=== PATIENT | male | born 1955 | race Caucasian/White ===

== ENCOUNTER → 2018-10-26 | Day surgery (SDC) | payer BC ==
[~2018-10-26] MED LIST: AMIODARONE HCL200 MG; ASPIRIN81 MG; COREG3.125 MG; FENTANYL CITRATE/PF 100MCG/2 ML INJ ONE; LEVOTHYROXINE50 MCG PO; MIDAZOLAM HCL 2 MG/2 ML VIAL ONE; OR PHACO EYE KIT ONE; PREOP PHACO EYE KIT ONE; RAMIPRIL5 MG PO
--- OUTSIDE RECORDS SUMMARY | 2018-10-26 13:58 | XMS REPORT | Clinical Summary ---
Author Author [employer] [place] [employer] Address Unknown Phone Unavailable Care Team Providers Care Assigner Name Role Phone Red Escamilla MD PCP Unavailable Allergies No Known Allergies Medications End Date Status Medication Sig Dispensed Refills Start Date Active amIODarone (PACERONE) 200 Take 400 mg 0 MG tablet by mouth. 5 Active levothyroxine (SYNTHROID, Take 200 mcg 0 LEVOTHROID) 200 MCG by mouth. tablet Active carvedilol (COREG) 25 MG Take 75 mg by 0 tablet mouth. Active ondansetron (ZOFRAN, Take 1 tablet 20 tablet 0 HYDROCHLORIDE,) 4 MG (4 mg total) 6 tablet by mouth every 8 (eight) hours as needed for nausea or vomiting. Active losartan-hydrochlorothiaz Take 1 tablet 0 jonathon (HYZAAR) 50-12.5 mg by mouth per tablet daily. 02/03/2018 Discontinued warfarin (COUMADIN) 2.5 Take 2.5 mg 0 MG tablet by mouth. 11/29/2017 clindamycin (CLEOCIN HCL) Take 1 40 capsule 0 300 MG capsule capsule (300 8 mg total) by mouth 4 (four) times a day for 10 days. 02/03/2018 Discontinued furosemide (LASIX) 20 mg Take 20 mg by 0 tablet mouth daily. 01/23/2018 Discontinued rosuvastatin (CRESTOR) 10 Take 10 mg by 0 MG tablet mouth daily. 02/06/2018 Discontinued amoxicillin-pot Take 1 tablet 14 tablet 0 clavulanate (AUGMENTIN) by mouth 2 8 875-125 mg per tablet (two) times a day for 7 days. 03/05/2018 traMADol (ULTRAM) 50 mg Take 1 tablet 30 tablet 0 tablet (50 mg total) 8 by mouth every 6 (six) hours as needed for moderate pain for up to 30 days. 03/05/2018 hydrALAZINE (APRESOLINE) Take 1 tablet 60 tablet 0 25 MG tablet (25 mg total) 8 by mouth 2 (two) times a day for 30 days. 02/11/2018 mupirocin (BACTROBAN) 2 % Apply 15 g 0 ointment topically 8 daily for 7 days. 03/06/2018 phytonadione (MEPHYTON) 1 Take 5 mL (5 150 mL 0 mg/mL suspension mg total) by 8 mouth daily for 30 days. 03/05/2018 furosemide (LASIX) 40 mg Take 1 tablet 30 tablet 0 tablet (40 mg total) 8 by mouth daily for 30 days. 02/13/2018 sulfamethoxazole-trimetho Take 1 tablet 14 tablet 0 prim (BACTRIM DS) 800-160 by mouth 2 8 mg per tablet (two) times a day for 7 days. smx-tmp DS (BACTRIM) 800-160 mg tabs (1tab q12 D10) Active Problems Problem Noted Date SILVIA (acute kidney injury) 02/01/2018 SBO (small bowel obstruction) 01/25/2018 A-fib 01/23/2018 Heart disease 01/23/2018 DVT femoral (deep venous thrombosis) with thrombophlebitis, right 01/23/2018 Transaminitis 01/23/2018 Chronic ulcer of great toe of right foot, limited to breakdown of skin 01/23/2018 Coagulopathy 01/22/2018 Ankle impingement syndrome 06/03/2016 Encounters Care Team Description Date Type Specialty Chauncey Langston DO Encounter for post surgical wound check (Primary Dx) 02/06/2018 Emergency Emergency Medicine Mecca Dinh MD LAPAROSCOPY, POSSIBLE SMALL BOWEL RESECTION, converted to OPEN 01/25/2018 Surgery General Surgery Luz Zayas 01/25/2018 Anesthesia General Surgery Event Lacho Almazan MD Mokkala, Sandhya-Rani, MD Teq[place]imuah, Remy, DO Coagulopathy (Primary Dx); Ecchymosis; Acute deep vein thrombosis (DVT) of femoral vein of right lower extremity; Abdominal pain, unspecified abdominal location; Enteritis; DVT femoral (deep venous thrombosis) with thrombophlebitis, right; SBO (small bowel obstruction) 01/21/2018 [facility] General Surgery - Encounter 02/03/2018 Genesis Young PA-C Marcantel, Derek L, MD Nondisplaced fracture of distal phalanx of left great toe, initial encounter for open fracture (Primary Dx) 11/19/2017 Emergency Emergency Medicine after 10/25/2017 Immunizations Name Dates Previously Given Next Due Td 11/19/2017 Social History Date Tobacco Use Types Packs/Day Years Used Never Smoker Smokeless Tobacco: Chew Current User Alcohol Use Drinks/Week oz/Week Comments Yes 8 Cans of 4.8 beer Sex Assigned at Date Recorded Not on file Industry Job Start Date Occupation Not on file Not on file Not on file Travel End Travel History Travel Start No recent travel history available. Last Filed Vital Signs Time Taken Vital Sign Reading 02/06/2018 5:44 PM CDT Blood Pressure 132/69 02/06/2018 5:44 PM CDT Pulse 56 02/06/2018 5:44 PM CDT Temperature 37.2 C (99 F) 02/06/2018 5:44 PM CDT Respiratory Rate 18 02/06/2018 5:44 PM CDT Oxygen Saturation 99% - Inhaled Oxygen - Concentration 02/06/2018 5:48 PM CDT Weight 122 kg (270 lb) 02/06/2018 5:48 PM CDT Height 182.9 cm (6') 02/06/2018 5:48 PM CDT Body Mass Index 36.62 Plan of Treatment Health Maintenance Due Date Last Done Comments COLON CANCER SCREENING 2007 SHINGLES VACCINES (#1) 2007 INFLUENZA VACCINE 03/10/2018 Procedures Comments Procedure Name Priority Date/Time Associated Diagnosis HEPATIC FUNCTION PANEL Routine 02/03/2018 4:44 AM CDT ZZESTIMATED GFR Routine 02/03/2018 4:44 AM CDT HC COMPLETE BLD COUNT Routine 02/03/2018 W/AUTO DIFF 4:44 AM CDT BASIC METABOLIC PANEL Routine 02/03/2018 4:44 AM CDT US ABDOMEN COMPLETE Routine 02/02/2018 3:30 PM CDT HEPATIC FUNCTION PANEL Routine 02/02/2018 4:18 AM CDT PROTHROMBIN TIME WITH INR Routine 02/02/2018 4:18 AM CDT ZZESTIMATED GFR Routine 02/01/2018 5:15 AM CDT PROTHROMBIN TIME WITH INR Routine 02/01/2018 5:15 AM CDT COMPREHENSIVE METABOLIC Routine 02/01/2018 PANEL 5:15 AM CDT PARTIAL THROMBOPLASTIN Routine 02/01/2018 TIME (PTT) 5:15 AM CDT XR ABDOMEN 1 VW STAT 01/31/2018 3:13 PM CDT SMEAR REVIEW Routine 01/31/2018 5:35 AM CDT ZZESTIMATED GFR Routine 01/31/2018 5:35 AM CDT PROTHROMBIN TIME WITH INR Routine 01/31/2018 5:35 AM CDT HC COMPLETE BLD COUNT Routine 01/31/2018 W/AUTO DIFF 5:35 AM CDT COMPREHENSIVE METABOLIC Routine 01/31/2018 PANEL 5:35 AM CDT PARTIAL THROMBOPLASTIN Routine 01/31/2018 TIME (PTT) 5:35 AM CDT HEPATIC FUNCTION PANEL Routine 01/30/2018 5:54 AM CDT PARTIAL THROMBOPLASTIN Routine 01/30/2018 TIME (PTT) 5:54 AM CDT XR ABDOMEN 1 VW STAT 01/29/2018 4:34 PM CDT ZZESTIMATED GFR Routine 01/29/2018 5:39 AM CDT HC COMPLETE BLD COUNT Routine 01/29/2018 W/AUTO DIFF 5:39 AM CDT BASIC METABOLIC PANEL Routine 01/29/2018 5:39 AM CDT PROTHROMBIN TIME WITH INR Routine 01/29/2018 5:39 AM CDT XR ABDOMEN 1 VW Routine 01/28/2018 10:58 AM CDT PROTHROMBIN TIME WITH INR Routine 01/28/2018 5:31 AM CDT MANUAL DIFFERENTIAL Routine 01/27/2018 6:57 AM CDT CBC WITH PLATELET AND Routine 01/27/2018 DIFFERENTIAL 6:57 AM CDT PROTHROMBIN TIME WITH INR Routine 01/27/2018 6:57 AM CDT ZZESTIMATED GFR Routine 01/27/2018 5:07 AM CDT BASIC METABOLIC PANEL Routine 01/27/2018 5:07 AM CDT MANUAL DIFFERENTIAL Routine 01/26/2018 5:32 AM CDT ZZESTIMATED GFR Routine 01/26/2018 5:32 AM CDT MAGNESIUM LEVEL Routine 01/26/2018 5:32 AM CDT BASIC METABOLIC PANEL Routine 01/26/2018 5:32 AM CDT CBC WITH PLATELET AND Routine 01/26/2018 DIFFERENTIAL 5:32 AM CDT PROTHROMBIN TIME WITH INR Routine 01/26/2018 5:32 AM CDT FACTOR II ASSAY Routine 01/25/2018 9:09 PM CDT FACTOR VII ASSAY Routine 01/25/2018 9:09 PM CDT TRANSFUSE FRESH FROZEN Routine 01/25/2018 PLASMA 6:11 PM CDT KY AN ELECTIVE Routine 01/25/2018 ENDOTRACHEAL AIRWAY 5:47 PM CDT Procedure Note - Luz Zayas 01/25/2018 5:47 PM CDT Airway Date/Time: 01/25/2018 4:33 PM Performed by: LUZ ZAYAS Authorized by: VIRA HOPE Location: OR Urgency: Elective Difficult Airway: No Anesthesio logist: VIRA HOPE Resident/C RNA/AA: LUZ ZAYAS Performed by: resident/C RNA/AA Preoxygena michelet with 100% O2: Yes Mask Ventilatio n: Not attempted Final Airway Type: Endotrache al airway Final Endotrache al Airway: ETT Cuffed: Yes Technique Used: Direct laryngosco py Devices/Me thods Used in Placement: Intubatin g stylet Insertion Site: Oral Blade Type: Arriaza Laryngosco pe Blade/Vide olaryngosc ope Blade Size: 2 ETT Size (mm): 7.5 Cuff at minimum occlusion pressure: Yes Measured from: Teeth ETT to Teeth (cm): 22 Placement Verified by: CO2 detection and direct visualizat ion Laryngosco pic view: Grade I - full view of glottis Rapid Sequence Induction (RSI): Yes Modified RSI: No Number of Attempts at Approach: 1 Atraumati c, teeth intact TRANSFUSE FRESH FROZEN Routine 01/25/2018 PLASMA 5:47 PM CDT TRANSFUSE FRESH FROZEN Routine 01/25/2018 PLASMA 5:31 PM CDT TRANSFUSE FRESH FROZEN Routine 01/25/2018 PLASMA 4:58 PM CDT TRANSFUSE FRESH FROZEN Routine 01/25/2018 PLASMA 4:41 PM CDT LAPAROSCOPY, DIAGNOSTIC 01/25/2018 Small Bowel Obstruction 4:30 PM CDT FL SMALL BOWEL Routine 01/25/2018 7:00 AM CDT XR ABDOMEN 1 VW Routine 01/25/2018 6:49 AM CDT ZZESTIMATED GFR Routine 01/25/2018 5:02 AM CDT PROTHROMBIN TIME WITH INR Routine 01/25/2018 5:02 AM CDT COMPREHENSIVE METABOLIC Routine 01/25/2018 PANEL 5:02 AM CDT ZZESTIMATED GFR Routine 01/24/2018 6:53 AM CDT PROTHROMBIN TIME WITH INR Routine 01/24/2018 6:53 AM CDT MAGNESIUM LEVEL Routine 01/24/2018 6:53 AM CDT HC COMPLETE BLD COUNT Routine 01/24/2018 W/AUTO DIFF 6:53 AM CDT COMPREHENSIVE METABOLIC Routine 01/24/2018 PANEL 6:53 AM CDT XR FOOT 3+ VW RIGHT Routine 01/23/2018 10:00 AM CDT HEPATIC FUNCTION PANEL Routine 01/23/2018 5:45 AM CDT ZZESTIMATED GFR Routine 01/23/2018 5:45 AM CDT PROTHROMBIN TIME WITH INR Routine 01/23/2018 5:45 AM CDT MAGNESIUM LEVEL Routine 01/23/2018 5:45 AM CDT BASIC METABOLIC PANEL Routine 01/23/2018 5:45 AM CDT HC COMPLETE BLD COUNT Routine 01/23/2018 W/AUTO DIFF 5:45 AM CDT INHIBIT PT, PTT MIX Routine 01/22/2018 11:30 PM CDT HEMOGLOBIN & HEMATOCRIT Timed 01/22/2018 11:30 PM CDT HEMOGLOBIN & HEMATOCRIT Timed 01/22/2018 5:40 PM CDT INHIBIT PT, PTT MIX Routine 01/22/2018 5:40 PM CDT ECHOCARDIOGRAM 2D Routine 01/22/2018 COMPLETE W MMODE SPECTRAL 1:45 PM CDT COLOR DOPPLER (15918) HEPATITIS ACUTE PANEL Routine 01/22/2018 12:21 PM CDT HEMOGLOBIN & HEMATOCRIT Timed 01/22/2018 12:21 PM CDT LACTIC ACID LEVEL, SEPSIS STAT 01/22/2018 - NOW AND REPEAT 2X EVERY 12:21 PM CDT 3 HOURS PROTHROMBIN TIME WITH INR Routine 01/22/2018 11:50 AM CDT PARTIAL THROMBOPLASTIN Routine 01/22/2018 TIME (PTT) 11:50 AM CDT TRANSFUSE FRESH FROZEN STAT 01/22/2018 PLASMA 9:55 AM CDT TRANSFUSE FRESH FROZEN STAT 01/22/2018 PLASMA 7:37 AM CDT KY CRITICAL CARE, E/M Routine 01/22/2018 30-74 MINUTES 5:43 AM CDT PREPARE FRESH FROZEN Timed 01/22/2018 PLASMA 4:03 AM CDT PREPARE FRESH FROZEN Timed 01/22/2018 PLASMA 4:03 AM CDT PREPARE FRESH FROZEN Timed 01/22/2018 PLASMA 4:03 AM CDT SERUM ELECTROPHORESIS Routine 01/22/2018 4:03 AM CDT HEXAGONAL PHOSPHOLIPID STAT 01/22/2018 4:03 AM CDT DRVVC, DRVVT/DRVVC STAT 01/22/2018 4:03 AM CDT FACTOR VIII ASSAY STAT 01/22/2018 4:03 AM CDT VWF IMMUNOFUNCTION Routine 01/22/2018 4:03 AM CDT CARDIOLIPIN ANTIBODIES Routine 01/22/2018 4:03 AM CDT TROPONIN STAT 01/22/2018 4:03 AM CDT VWF ANTIGEN STAT 01/22/2018 4:03 AM CDT TYPE AND SCREEN Timed 01/22/2018 4:03 AM CDT FACTOR X ASSAY STAT 01/22/2018 4:03 AM CDT FACTOR XI ASSAY STAT 01/22/2018 4:03 AM CDT FACTOR VII ASSAY STAT 01/22/2018 4:03 AM CDT FACTOR V ASSAY STAT 01/22/2018 4:03 AM CDT FACTOR IX ASSAY STAT 01/22/2018 4:03 AM CDT FACTOR II ASSAY STAT 01/22/2018 4:03 AM CDT INHIBIT PT, PTT MIX STAT 01/22/2018 4:03 AM CDT LDH STAT 01/22/2018 4:03 AM CDT HAPTOGLOBIN STAT 01/22/2018 4:03 AM CDT LUPUS ANTICOAGULANT PANEL STAT 01/22/2018 4:03 AM CDT HIV 1, 2 ANTIBODY STAT 01/22/2018 4:03 AM CDT CADY STAT 01/22/2018 4:03 AM CDT BETA-2 GLYCOPROTEIN 1 STAT 01/22/2018 ANTIBODY, IGG AND IGM 4:03 AM CDT D-DIMER STAT 01/22/2018 4:03 AM CDT FIBRINOGEN STAT 01/22/2018 4:03 AM CDT PROTHROMBIN TIME WITH INR Routine 01/22/2018 1:50 AM CDT PARTIAL THROMBOPLASTIN Routine 01/22/2018 TIME (PTT) 1:[address] ABDOMEN PELVIS WO STAT 01/22/2018 CONTRAST 1:24 AM CDT US DUPLEX VENOUS LOWER STAT 01/22/2018 EXTREMITY RIGHT 1:05 AM CDT MISCELLANEOUS REFERRAL Routine 01/22/2018 TEST 12:22 AM CDT ZZESTIMATED GFR STAT 01/22/2018 12:22 AM CDT URINALYSIS SCREEN AND STAT 01/22/2018 MICROSCOPY, WITH REFLEX 12:22 AM CDT TO CULTURE B NATRIURETIC PEPTIDE STAT 01/22/2018 12:22 AM CDT TROPONIN STAT 01/22/2018 12:22 AM CDT LIPASE LEVEL STAT 01/22/2018 12:22 AM CDT HEPATIC FUNCTION PANEL STAT 01/22/2018 12:22 AM CDT LACTIC ACID LEVEL, SEPSIS STAT 01/22/2018 - NOW AND REPEAT 2X EVERY 12:22 AM CDT 3 HOURS MAGNESIUM LEVEL STAT 01/22/2018 12:22 AM CDT HC COMPLETE BLD COUNT STAT 01/22/2018 W/AUTO DIFF 12:22 AM CDT BASIC METABOLIC PANEL STAT 01/22/2018 12:22 AM CDT URINE CULTURE STAT 01/22/2018 12:22 AM CDT XR FOOT 3+ VW RIGHT STAT 11/19/2017 5:20 PM CDT ZZESTIMATED GFR STAT 11/19/2017 4:45 PM CDT COMPREHENSIVE METABOLIC STAT 11/19/2017 PANEL 4:45 PM CDT PARTIAL THROMBOPLASTIN STAT 11/19/2017 TIME (PTT) 4:45 PM CDT PROTHROMBIN TIME WITH INR STAT 11/19/2017 4:45 PM CDT HC COMPLETE BLD COUNT STAT 11/19/2017 W/AUTO DIFF 4:45 PM CDT after 10/25/2017 Results * Estimated GFR (02/03/2018 4:44 AM CDT) Only the most recent of 11 results within the time period is included. GFR Non Af Amer 52 (A) mL/min/1.[address] [facility] DEPARTMENT OF PATHOLOGY AND GENOMIC MEDICINE GFR Af Amer 62 mL/min/1.[address] [facility] DEPARTMENT OF Comment: PATHOLOGY AND Chronic kidney disease: <60 GENOMIC MEDICINE mL/min/1.73m2 Kidney failure: <15 mL/min/1.73m2 The estimated GFR is calculated from the IDMS-traceable Modification of Diet in Renal Disease Equation. The accuracy of the calculation is poor when the creatinine is normal. Calculated values >90 mL/min/1.73m2 are not reported. This equation has not been validated in children (<18 years), women, the elderly (>70 years), or ethnic groups other than Caucasians and Americans. Specimen Plasma specimen Performing Organization Address City/State/Zipcode Phone Number [facility] [place] [address] [address] [place] [address] PATHOLOGY AND [facility] * CBC with platelet and differential (02/03/2018 4:44 AM CDT) Only the most recent of 9 results within the time period is included. WBC 7.98 4.50 - 11.00 k/uL [facility] DEPARTMENT OF PATHOLOGY AND GENOMIC MEDICINE RBC 3.51 (L) 4.40 - 6.00 m/uL [facility] PATHOLOGY AND GENOMIC MEDICINE HGB 10.3 (L) 14.0 - 18.0 g/dL [facility] PATHOLOGY AND GENOMIC MEDICINE HCT 31.6 (L) 41.0 - 51.0 % [facility] DEPARTMENT PATHOLOGY AND GENOMIC MEDICINE MCV 90.0 82.0 - 100.[address] [facility] DEPARTMENT OF PATHOLOGY AND GENOMIC MEDICINE MCH 29.3 27.0 - 34.[address] [facility] DEPARTMENT OF PATHOLOGY AND GENOMIC MEDICINE MCHC 32.6 31.0 - 37.0 g/dL [facility] DEPARTMENT OF PATHOLOGY AND GENOMIC MEDICINE RDW - SD 55.0 37.0 - 55.[address] [facility] DEPARTMENT PATHOLOGY AND GENOMIC MEDICINE MPV 9.6 8.8 - 13.[address] [facility] DEPARTMENT OF PATHOLOGY AND GENOMIC MEDICINE Platelet count 280 150 - 400 k/uL [facility] DEPARTMENT PATHOLOGY AND GENOMIC MEDICINE Nucleated RBC 0.00 /[address] [facility] DEPARTMENT OF PATHOLOGY AND GENOMIC MEDICINE Neutrophils 73.0 (H) 39.0 - 69.0 % [facility] DEPARTMENT OF PATHOLOGY AND GENOMIC MEDICINE Lymphocytes 13.7 (L) 25.0 - 45.0 % [facility] DEPARTMENT OF PATHOLOGY AND GENOMIC MEDICINE Monocytes 8.8 0.0 - 10.0 % [facility] DEPARTMENT OF PATHOLOGY AND GENOMIC MEDICINE Eosinophils 3.1 0.0 - 5.0 % [facility] DEPARTMENT OF PATHOLOGY AND GENOMIC MEDICINE Basophils 0.5 0.0 - 1.0 % [facility] DEPARTMENT OF PATHOLOGY AND GENOMIC MEDICINE Specimen Blood Performing Organization Address [facility] Phone Number [facility] [id number] [place] [address] [place] [address] PATHOLOGY [facility] * Hepatic function panel (02/03/2018 4:44 AM CDT) Only the most recent of 5 results within the time period is included. Albumin 2.8 (L) 3.5 - 5.0 g/dL [facility] DEPARTMENT OF PATHOLOGY AND GENOMIC MEDICINE Total bilirubin 1.4 (H) 0.0 - 1.2 mg/dL [facility] DEPARTMENT OF PATHOLOGY AND GENOMIC MEDICINE Bilirubin direct 0.5 (H) 0.0 - 0.3 mg/dL [facility] DEPARTMENT OF PATHOLOGY AND GENOMIC MEDICINE Alkaline phosphatase 58 40 - 129 U/L [facility] DEPARTMENT OF PATHOLOGY AND GENOMIC MEDICINE Protein 5.6 (L) 6.3 - 8.3 g/dL [facility] DEPARTMENT OF Comment: PATHOLOGY AND GENOMIC MEDICINE 4.6-7.0 g/dL 1 week 4.4-7.6 g/dL 7 months-1year 5.1-7.3 g/dL 1-2 years5.6-7 .5 g/dL >3 years6.0-8 .0 g/dL 18-150 6.3-8.3 g/dL ALT 157 (H) 5 - 50 U/L [facility] DEPARTMENT OF PATHOLOGY AND GENOMIC MEDICINE AST 92 (H) 10 - 50 U/L [facility] DEPARTMENT OF PATHOLOGY AND GENOMIC MEDICINE Specimen Plasma specimen Performing Organization Address [facility] Phone Number [facility] [id number] [place] [address] [place] [id number] PATHOLOGY [facility] * Basic metabolic panel (02/03/2018 4:44 AM CDT) Only the most recent of 6 results within the time period is included. Sodium 137 135 - 148 mEq/L [facility] DEPARTMENT OF PATHOLOGY AND GENOMIC MEDICINE Potassium 3.7 3.5 - 5.0 mEq/L [facility] DEPARTMENT OF PATHOLOGY AND GENOMIC MEDICINE Chloride 98 98 - 112 mEq/L [facility] OF PATHOLOGY AND GENOMIC MEDICINE CO2 31 24 - 31 mEq/L [facility] DEPARTMENT OF PATHOLOGY AND GENOMIC MEDICINE Anion gap 8@ANIO 7 - 15 mEq/L [facility] OF PATHOLOGY AND GENOMIC MEDICINE BUN 17 8 - 23 mg/dL [facility] DEPARTMENT OF PATHOLOGY AND GENOMIC MEDICINE Creatinine 1.4 (H) 0.7 - 1.2 mg/dL [facility] DEPARTMENT OF PATHOLOGY AND GENOMIC MEDICINE Glucose 120 (H) 65 - 99 mg/dL [facility] OF PATHOLOGY AND GENOMIC MEDICINE Calcium 7.7 (L) 8.8 - 10.2 mg/dL [facility] OF PATHOLOGY AND GENOMIC MEDICINE Specimen Plasma specimen Performing Organization Address City/State/Zipcode Phone Number [place] [phone] [place] [address] PATHOLOGY AND GENOMIC MEDICINE * US Abdomen Complete (02/02/2018 3:30 PM CDT) Narrative Performed At EXAM: US ABDOMEN COMPLETE RADIANT CLINICAL DATA:elevated LFTs COMPARISON: NONE. FINDINGS: LIVER:The liver demonstrates normal echogenicity without focal mass or intrahepatic biliary ductal dilatation. MPV:Doppler evaluation of the portal vein demonstrates normal hepatopetal flow. GALLBLADDER:There is nonshadowing sludge in the gallbladder. No gallstones are seen. There is no pericholecystic edema. Gallbladder wall thickness is 4 mm. CBD: 6 mm diameter, within normal limits. PANCREAS:Not seen SPLEEN:The spleen is homogeneous and not enlarged.. RIGHT KIDNEY:11 cm length.The right kidney is normal in size and echogenicity. There is no evidence of mass, calculi, or hydronephrosis. LEFT KIDNEY:12.2 cm length.The left kidney is normal in size and echogenicity. There is no evidence of mass, calculi, or hydronephrosis. AORTA:The visualized upper abdominal aorta demonstrates no evidence of ectasia or aneurysm. IVC:The visualized portions of the inferior vena cava are unremarkable. IMPRESSION: 1. Gallbladder sludge without visible shadowing stones. Borderline to mild gallbladder wall thickening without pericholecystic fluid. Findings are not convincing for cholecystitis. If there is clinical concern, recommend nuclear hepatic biliary scan. 2.Otherwise unremarkable study. [id number] Procedure Note Interface, Radiology Results Incoming - 02/02/2018 4:03 PM CDT EXAM: US ABDOMEN COMPLETE CLINICAL DATA: elevated LFTs COMPARISON: NONE. FINDINGS: LIVER: The liver demonstrates normal echogenicity without focal mass or intrahepatic biliary ductal dilatation. MPV: Doppler evaluation of the portal vein demonstrates normal hepatopetal flow. GALLBLADDER: There is nonshadowing sludge in the gallbladder. No gallstones are seen. There is no pericholecystic edema. Gallbladder wall thickness is 4 mm. CBD: 6 mm diameter, within normal limits. PANCREAS: Not seen SPLEEN: The spleen is homogeneous and not enlarged.. RIGHT KIDNEY: 11 cm length. The right kidney is normal in size and echogenicity. There is no evidence of mass, calculi, or hydronephrosis. LEFT KIDNEY: 12.2 cm length. The left kidney is normal in size and echogenicity. There is no evidence of mass, calculi, or hydronephrosis. AORTA: The visualized upper abdominal aorta demonstrates no evidence of ectasia or aneurysm. IVC: The visualized portions of the inferior vena cava are unremarkable. IMPRESSION: 1. Gallbladder sludge without visible shadowing stones. Borderline to mild gallbladder wall thickening without pericholecystic fluid. Findings are not convincing for cholecystitis. If there is clinical concern, recommend nuclear hepatic biliary scan. 2. Otherwise unremarkable study. [id number] Performing Organization Address City/[facility]/Zipcode Phone Number [facility] [address] [place] [address] * Prothrombin time with INR (02/02/2018 4:18 AM CDT) Only the most recent of 13 results within the time period is included. Prothrombin time 19.6 (H) 12.0 - 15.[address] [facility] DEPARTMENT OF PATHOLOGY AND GENOMIC MEDICINE INR 1.[address] [facility] DEPARTMENT OF Comment: PATHOLOGY AND The International Normalized GENOMIC MEDICINE Ratio (INR) is a therapeutic monitoring tool for patients who are stable on oral anticoagulant therapy. An INR of 2.0-3.0 is suggested for deep vein thrombosis/pulmonary embolism. Specimen Blood Performing Organization Address City/State/Zipcode Phone Number [facility] OF [address] [place] [address] [place] [address] PATHOLOGY AND GENOMIC MEDICINE * Partial thromboplastin time, activated (02/01/2018 5:15 AM CDT) Only the most recent of 6 results within the time period is included. PTT 31.4 23.0 - 36.[address] [facility] DEPARTMENT OF Comment: PATHOLOGY AND PTT therapeutic range for GENOMIC MEDICINE unfractionated heparin is 61.0-112.0 seconds which corresponds to Anti-Xa 0.3-0.7 U/ml. Specimen Blood Performing Organization Address City/State/Zipcode Phone Number [facility] [place] [address] [address] [place] [address] PATHOLOGY AND GENOMIC MEDICINE * Comprehensive metabolic panel (02/01/2018 5:15 AM CDT) Only the most recent of 5 results within the time period is included. Sodium 126 (L) 135 - 148 mEq/L [facility] DEPARTMENT OF PATHOLOGY AND GENOMIC MEDICINE Potassium 4.0 3.5 - 5.0 mEq/L [facility] DEPARTMENT OF PATHOLOGY AND GENOMIC MEDICINE Chloride 93 (L) 98 - 112 mEq/L [facility] DEPARTMENT OF PATHOLOGY AND GENOMIC MEDICINE CO2 24 24 - 31 mEq/L [facility] DEPARTMENT OF PATHOLOGY AND GENOMIC MEDICINE Anion gap 9@ANIO 7 - 15 mEq/L [facility] DEPARTMENT OF PATHOLOGY AND GENOMIC MEDICINE BUN 21 8 - 23 mg/dL [facility] DEPARTMENT OF PATHOLOGY AND GENOMIC MEDICINE Creatinine 1.6 (H) 0.7 - 1.2 mg/dL [facility] DEPARTMENT OF PATHOLOGY AND GENOMIC MEDICINE Glucose 107 (H) 65 - 99 mg/dL [facility] DEPARTMENT OF PATHOLOGY AND GENOMIC MEDICINE Calcium 7.7 (L) 8.8 - 10.2 mg/dL [facility] DEPARTMENT OF PATHOLOGY AND GENOMIC MEDICINE Protein 5.4 (L) 6.3 - 8.3 g/dL [facility] DEPARTMENT OF Comment: PATHOLOGY AND GENOMIC MEDICINE 4.6-7.0 g/dL 1 week 4.4-7.6 g/dL 7 months-1year 5.1-7.3 g/dL 1-2 years5.6-7 .5 g/dL >3 years6.0-8 .0 g/dL 18-150 6.3-8.3 g/dL Albumin 2.8 (L) 3.5 - 5.0 g/dL [facility] DEPARTMENT OF PATHOLOGY AND GENOMIC MEDICINE A/G ratio 1.1 0.7 - 3.[address] [facility] DEPARTMENT OF PATHOLOGY AND GENOMIC MEDICINE Alkaline phosphatase 45 40 - 129 U/L [facility] DEPARTMENT OF PATHOLOGY AND GENOMIC MEDICINE AST 117 (H) 10 - 50 U/L [facility] DEPARTMENT OF PATHOLOGY AND GENOMIC MEDICINE ALT 179 (H) 5 - 50 U/L [facility] DEPARTMENT OF PATHOLOGY AND GENOMIC MEDICINE Total bilirubin 2.1 (H) 0.0 - 1.2 mg/dL [facility] DEPARTMENT OF PATHOLOGY AND GENOMIC MEDICINE Specimen Plasma specimen Performing Organization Address City/[facility] Cent[facility]ode Phone Number [facility] DEPARTMENT [address] [place] [address] PATHOLOGY AND GENOMIC MEDICINE * XR Abdomen 1 Vw (01/31/2018 3:13 PM CDT) Only the most recent of 4 results within the time period is included. Narrative Performed At EXAMINATION:XR ABDOMEN 1 VW [facility] CLINICAL HISTORY:constipation, Pain COMPARISON:01/29/2018 FINDINGS: XR ABDOMEN 1 VW images are submitted. There is extensive colonic fecal retention present. Bowel gas is seen throughout the small bowel and colon. There is some minimal small bowel dilatation but no evidence of any focal obstruction. Minimal degenerative changes seen within the thoracic spine. And lumbar spine. IMPRESSION: 1. There is moderate colonic fecal retention present. 2. There is no bowel obstruction present. [id number] Procedure Note Hm Interface, Radiology Results Incoming - 01/31/2018 3:19 PM CDT EXAMINATION: XR ABDOMEN 1 VW CLINICAL HISTORY: constipation, Pain COMPARISON: 01/29/2018 FINDINGS: XR ABDOMEN 1 VW images are submitted. There is extensive colonic fecal retention present. Bowel gas is seen throughout the small bowel and colon. There is some minimal small bowel dilatation but no evidence of any focal obstruction. Minimal degenerative changes seen within the thoracic spine. And lumbar spine. IMPRESSION: 1. There is moderate colonic fecal retention present. 2. There is no bowel obstruction present. [id number] Performing Organization Address City/[facility]/Zipcode Phone Number [facility] [address] [place] [address] * Smear review (01/31/2018 5:35 AM CDT) Platelet slide review Sara adequate [facility] DEPARTMENT OF PATHOLOGY AND GENOMIC MEDICINE Anisocytosis Moderate [facility] DEPARTMENT OF PATHOLOGY AND GENOMIC MEDICINE Polychromasia Moderate [facility] DEPARTMENT OF PATHOLOGY AND GENOMIC MEDICINE Performing Organization Address City/[facility]/Zipcode Phone Number [facility] DEPARTMENT OF [address] [place] [address] [place] [address] PATHOLOGY AND GENOMIC MEDICINE * Manual differential (01/27/2018 6:57 AM CDT) Only the most recent of 2 results within the time period is included. Manual differential PERFORMED [facility] DEPARTMENT OF PATHOLOGY AND GENOMIC MEDICINE Neutrophils 79.0 (H) 39.0 - 69.0 % [facility] DEPARTMENT OF PATHOLOGY AND GENOMIC MEDICINE Lymphocytes 15.0 (L) 25.0 - 45.0 % [facility] DEPARTMENT OF PATHOLOGY AND GENOMIC MEDICINE Monocytes 5.0 0.0 - 10.0 % [facility] DEPARTMENT OF PATHOLOGY AND GENOMIC MEDICINE Eosinophils 1.0 0.0 - 5.0 % [facility] DEPARTMENT OF PATHOLOGY AND GENOMIC MEDICINE Basophils 0.0 0.0 - 1.0 % [facility] DEPARTMENT OF PATHOLOGY AND GENOMIC MEDICINE Metamyelocytes 0 % [facility] DEPARTMENT OF PATHOLOGY AND GENOMIC MEDICINE Promyelocytes 0 % [facility] DEPARTMENT OF PATHOLOGY AND GENOMIC MEDICINE Platelet slide review Sara adequate [facility] DEPARTMENT OF PATHOLOGY AND GENOMIC MEDICINE Anisocytosis Moderate [facility] DEPARTMENT OF PATHOLOGY AND GENOMIC MEDICINE Polychromasia FEW [facility] DEPARTMENT OF PATHOLOGY AND GENOMIC MEDICINE Ovalocytes Moderate [facility] DEPARTMENT OF PATHOLOGY AND GENOMIC MEDICINE Anisochromia Moderate [facility] DEPARTMENT OF PATHOLOGY AND GENOMIC MEDICINE Performing Organization Address City/[facility] Centercone Phone Number [address] [place] [address] PATHOLOGY AND GENOMIC MEDICINE * Magnesium level (01/26/2018 5:32 AM CDT) Only the most recent of 4 results within the time period is included. Magnesium 2.1 1.6 - 2.4 mg/dL [facility] DEPARTMENT OF PATHOLOGY AND GENOMIC MEDICINE Specimen Plasma specimen Performing Organization Address City/[facility] Centercode Phone Number [address] [place] [address] PATHOLOGY AND GENOMIC MEDICINE * Factor VII assay (01/25/2018 9:09 PM CDT) Only the most recent of 2 results within the time period is included. Factor VII activity 37 (L) 70 - 150 % [facility] DEPARTMENT OF PATHOLOGY AND GENOMIC MEDICINE Specimen Blood Performing Organization Address City/[facility]/Zipcode Phone Number [facility] DEPARTMENT OF [address] [place] [address] PATHOLOGY AND GENOMIC MEDICINE * Factor II assay (01/25/2018 9:09 PM CDT) Only the most recent of 2 results within the time period is included. Factor II activity 37 (L) 70 - 120 % [facility] DEPARTMENT OF PATHOLOGY AND GENOMIC MEDICINE Specimen Blood Performing Organization Address City/[facility]/Zipcode Phone Number [facility] DEPARTMENT OF [address] [place] [address] PATHOLOGY AND GENOMIC MEDICINE * FL Small Bowel Series (01/25/2018 7:00 AM CDT) Narrative Performed At PROCEDURE:FL SMALL BOWEL [facility] CLINICAL HISTORY:OBSTRUCTION - INTESTINAL,small bowel obstruction COMPARISON:None. TECHNIQUE: A billing checker film was performed. A small bowel series was subsequently done using Gastrografin sequential overhead 15 minute-one hour abdominal films were obtained. FINDINGS: The billing checker film demonstrates dilated loops of small bowel without colonic distention consistent with changes of mechanical small bowel obstruction. An NG tube is seen with the tip projected below the GE junction.. Imaging was taken to 9 hours postingestion with contrast not advancing past the proximal jejunal level. Note should made that Gastrografin does not coat the mucosa adequately precluding evaluation of fine mucosal detail. No gross filling defects are identified. IMPRESSION: Abnormal study. High-grade mechanical small bowel obstruction likely at the proximal to mid jejunal level. Contrast never reaches the colon up to 9 hours of imaging. [id number] . Procedure Note Interface, Radiology Results Incoming - 01/25/2018 10:22 AM CDT PROCEDURE: FL SMALL BOWEL CLINICAL HISTORY: OBSTRUCTION - INTESTINAL, small bowel obstruction COMPARISON: None. TECHNIQUE: A billing checker film was performed. A small bowel series was subsequently done using Gastrografin sequential overhead 15 minute-one hour abdominal films were obtained. FINDINGS: The billing checker film demonstrates dilated loops of small bowel without colonic distention consistent with changes of mechanical small bowel obstruction. An NG tube is seen with the tip projected below the GE junction.. Imaging was taken to 9 hours postingestion with contrast not advancing past the proximal jejunal level. Note should made that Gastrografin does not coat the mucosa adequately precluding evaluation of fine mucosal detail. No gross filling defects are identified. IMPRESSION: Abnormal study. High-grade mechanical small bowel obstruction likely at the proximal to mid jejunal level. Contrast never reaches the colon up to 9 hours of imaging. [id number] . Performing Organization Address City/State/Zipcode Phone Number [facility] [address] [place] [address] * XR Foot 3+ Vw Right (01/23/2018 10:00 AM CDT) Only the most recent of 2 results within the time period is included. Narrative Performed At EXAMINATION:XR FOOT 3VW RIGHT [facility] CLINICAL HISTORY:hematoma r o fx COMPARISON: 11/19/2017 TECHNIQUE: AP, lateral, and oblique right foot radiographs are reviewed. IMPRESSION: 1.Oblique fracture of the great toe distal phalanx is redemonstrated and has not shown significant interval healing. 2.There is no other fracture. 3.There is no dislocation. 4.Some soft tissue swelling in the dorsal foot at the level of the metatarsals is apparent. There are vascular calcifications. [id number] Procedure Note Hm Interface, Radiology Results Incoming - 01/23/2018 12:10 PM CDT EXAMINATION: XR FOOT 3 VW RIGHT CLINICAL HISTORY: hematoma r o fx COMPARISON: 11/19/2017 TECHNIQUE: AP, lateral, and oblique right foot radiographs are reviewed. IMPRESSION: 1. Oblique fracture of the great toe distal phalanx is redemonstrated and has not shown significant interval healing. 2. There is no other fracture. 3. There is no dislocation. 4. Some soft tissue swelling in the dorsal foot at the level of the metatarsals is apparent. There are vascular calcifications. [id number] Performing Organization Address City/State/Zipcode Phone Number [facility] [address] [place] [address] * Inhibit PT, PTT mix (01/22/2018 11:30 PM CDT) Only the most recent of 3 results within the time period is included. PT patient 0 minutes 21.6 (H) 12.0 - 15.0 sec [facility] DEPARTMENT OF PATHOLOGY AND GENOMIC MEDICINE PT 1:1 mix 0 minutes 14.4 12.0 - 15.0 sec [facility] DEPARTMENT OF PATHOLOGY AND GENOMIC MEDICINE PTT patient 0 minutes 53.9 (H) 23.0 - 36.0 sec [facility] DEPARTMENT OF Comment: PATHOLOGY AND Tests performed for mixing GENOMIC MEDICINE study interpretation. PT 22.0 sec (Nrml range 12.0-15.0 sec) PTT 51.3 sec (Nrml range 23.0-36.0 sec) FIB 536 mg/dL (Nrml range 200-450 mg/dL) Throm 15.4 sec (Nrml range 15.0-19.0 sec) PTT 1:1 mix 0 minutes 33.7 23.0 - 36.0 sec [facility] DEPARTMENT OF PATHOLOGY AND GENOMIC MEDICINE PTT patient 60 minutes 57.2 (H) 23.0 - 36.0 sec [facility] DEPARTMENT OF PATHOLOGY AND GENOMIC MEDICINE PTT 1:1 mix 60 minutes 35.8 23.0 - 36.0 sec [facility] DEPARTMENT OF PATHOLOGY AND GENOMIC MEDICINE PT, PTT mix SeeBelow sec [facility] DEPARTMENT OF interpretation Comment: PATHOLOGY AND Prolonged PT and PTT with GENOMIC MEDICINE complete correction, consistent with vitamin K dependent factor deficiency.Reviewed by Awa Holland M.D. Specimen Blood Performing Organization Address City/State/Zipcode Phone Number [facility] DEPARTMENT OF [address] [place] [address] PATHOLOGY AND GENOMIC MEDICINE * Hemoglobin & hematocrit (01/22/2018 11:30 PM CDT) Only the most recent of 3 results within the time period is included. HGB 10.9 (L) 14.0 - 18.0 g/dL [facility] DEPARTMENT OF PATHOLOGY AND GENOMIC MEDICINE HCT 33.4 (L) 41.0 - 51.0 % [facility] DEPARTMENT OF PATHOLOGY AND GENOMIC MEDICINE Specimen Blood Performing Organization Address City/State/Zipcode Phone Number [facility] [address] [place] [address] PATHOLOGY AND GENOMIC MEDICINE * Echocardiogram complete w contrast and 3D if needed (01/22/2018 1:45 PM CDT) AoV Area, Vmax 2.40 cm2 [facility] AoV Area, VTI 2.81 cm2 [facility] AoV Mean PG 14.27 mmHg [facility] AoV Peak PG 33.83 mmHg [facility] AoV Vmax 2.91 m/s [facility] AoV VTI 0.49 m [facility] IVS,d 1.20 0.6 - 1.2 cm [facility] LV,d 4.49 cm [facility] LV EF,A2C 62.06 % [facility] LV EF,A4C 57.86 % [facility] LV EF,BP 56.85 % [facility] [place],d A2C 8.85 cm [facility] [place],d A4C 9.67 cm [facility] [place],s A2C 5.87 cm [facility] [place],s A4C 7.53 cm [facility] LV,s 3.00 cm [facility] LV SV,A2C 77.63 % [facility] LV SV,A4C 117.23 % [facility] LV Vol,d A2C 125.09 mL [facility] LV Vol,d A4C 202.60 ml [facility] LV Vol,d BP 164.57 ml [facility] LV Vol,s A2C 47.46 mL [facility] LV Vol,s A4C 85.37 ml [facility] LV Vol,s BP 71.02 nl [facility] LVOT Diam,S 2.20 cm [facility] LVOT Vmax 1.71 m/s [facility] LVOT VTI 0.36 m [facility] LVPWD,d 0.79 cm [facility] TR Vpeak 2.93 mm/s [facility] MV E A ratio 1.87 mmHg [facility] TR pk grad 31.04 mmHg [facility] E wave decelartion time 211.28 msec [facility] MV Peak A Chavez 0.44 m/s [facility] MV valve area p 1/2 3.70 cm2 [facility] method MV Peak E Chavez 0.83 m/s [facility] MV stenosis pressure 1/2 59.39 ms [facility] time AV LVOT peak gradient 11.71 mmHg [facility] LV SYS VOL 35.00 ml [facility] LV CALVIN VOL 92.08 ml [facility] LV SV Teich 2D 57.08 ml [facility] LVOT SI 55.79 ml/m2 [facility] AoV Cusp sep 1.77 [facility] AoV Vmn 1.75 [facility] IVS s 2D 1.52 [facility] LA Ao Ratio Mmode 1.40 [facility] LVOT Vmn 1.20 [facility] Pt Size 182.88 [facility] Pt Wt 127.01 [facility] Ao root annulus 4.32 cm [facility] PV AT 138.41 msec [facility] LVOT mean grad 6.49 mmHg [facility] LVPW s PLAX 1.30 cm [facility] MV Decel slope 3.94 m/s2 [facility] LA Vol MOD A4C 98.92 ml [facility] Velocity Ratio (V1/V2) 0.59 m/s [facility] EF 61.99 % [facility] E/A ratio 1.89 [facility] LVOT area 3.80 cm2 [facility] LA volume 108.0 cm3 [facility] LA Area d A4C 99 cm2 [facility] RVSP (TR) 39.25 mmHg [facility] RA pressure 5.00 mmHg [facility] RVSP 39.25 mmHg [facility] Aortic Root 4.30 cm [facility] [place] End Calvin Grad 8.31 [facility] [place] End Diat Chavez 1.44 [facility] D E excurs 2.10 [facility] E f slope 0.15 [facility] E prime lat 0.15 [facility] E jagdish sept 0.07 [facility] PV acc T slope 4.60 [facility] Narrative Performed At [facility] The left ventricle chamber size is normal. Left Ventricular ejection fraction is 55 - 60%. Left atrium size is upper limits of normal. No pericardial effusion Performing Organization Address City/[facility] Centercone Phone Number [facility] [address] [place] [address] * Lactic acid level, SEPSIS - Now and repeat 2x every 3 hours (01/22/2018 12:21 PM CDT) Only the most recent of 2 results within the time period is included. Lactic acid 1.6 0.5 - 2.2 mmol/L [facility] DEPARTMENT OF PATHOLOGY AND GENOMIC MEDICINE Specimen Plasma specimen Performing Organization Address [facility] Phone Number [address] [place] [id number] PATHOLOGY AND [facility] * Hepatitis acute panel (01/22/2018 12:21 PM CDT) Hepatitis A IgM Nonreactive Non-reactive [facility] DEPARTMENT OF PATHOLOGY AND GENOMIC MEDICINE Hepatitis B core IgM Nonreactive Non-reactive [facility] DEPARTMENT OF PATHOLOGY AND GENOMIC MEDICINE Hepatitis B surface Ag Nonreactive Non-reactive [facility] DEPARTMENT OF PATHOLOGY AND GENOMIC MEDICINE Hepatitis C Ab Nonreactive Non-reactive [facility] DEPARTMENT PATHOLOGY AND GENOMIC MEDICINE Specimen Serum Performing Organization Address [facility] Phone Number [address] [place] [phone] PATHOLOGY AND [facility] * Transfuse fresh frozen plasma (01/22/2018 9:55 AM CDT) Only the most recent of 2 results within the time period is included. * CRITICAL CARE (01/22/2018 5:43 AM CDT) Narrative Performed At Lacho Almazan MD 01/22/20185:44 AM Critical Care Performed by: LACHO ALMAZAN Authorized by: LACHO ALMAZAN Critical care provider statement: Critical care time (minutes):33 Critical care start time:01/22/2018 1:00 AM Critical care end time:01/22/2018 5:43 AM Critical care time was exclusive of:Separately billable procedures and treating other patients and teaching time Critical care was necessary to treat or prevent imminent or life-threatening deterioration of the following conditions:Circulatory failure Critical care was time spent personally by me on the following activities:Blood draw for specimens, development of treatment plan with patient or surrogate, discussions with consultants, discussions with primary provider, evaluation of patient's response to treatment, examination of patient, obtaining history from patient or surrogate, ordering and performing treatments and interventions, ordering and review of laboratory studies, ordering and review of radiographic studies, pulse oximetry, re-evaluation of patient's condition and review of old charts [place] 'yes' if you are taking over critical care for this patient from another provider.: no * [facility] immunofunction (01/22/2018 4:03 AM CDT) VWF immunofunction 295 (H) 50 - 180 % [facility] DEPARTMENT OF PATHOLOGY AND GENOMIC MEDICINE Specimen Blood Performing Organization Address City/[facility]/[place] [address] PATHOLOGY AND GENOMIC MEDICINE * Hexagonal phospholipid (01/22/2018 4:03 AM CDT) Hexagonal phospholipid 64.9 sec [facility] DEPARTMENT OF tube #1 PATHOLOGY AND GENOMIC MEDICINE Hexagonal phospholipid 53.3 sec [facility] DEPARTMENT OF tube #2 PATHOLOGY AND GENOMIC MEDICINE Tube 1 - 2 11.6 (H) 0.0 - 8.0 sec [facility] DEPARTMENT OF PATHOLOGY AND GENOMIC MEDICINE LA interpretation Positive [facility] DEPARTMENT OF PATHOLOGY AND GENOMIC MEDICINE Specimen Blood Performing Organization Address City/[facility]/Zipcode Phone Number [address] [address] PATHOLOGY AND GENOMIC MEDICINE * DRVVC, DRVVT/DRVVC (01/22/2018 4:03 AM CDT) DRVVT 103.9 (H) 29.0 - 46.0 sec [facility] DEPARTMENT OF PATHOLOGY AND GENOMIC MEDICINE DRVVC 143.4 sec [facility] DEPARTMENT OF PATHOLOGY AND GENOMIC MEDICINE DRVVT/DRVVC ratio 0.72 0.00 - 1.22 sec [facility] DEPARTMENT OF PATHOLOGY AND GENOMIC MEDICINE Specimen Blood Performing Organization Address [facility] [place] [address] PATHOLOGY AND [facility] MEDICINE * Factor X assay (01/22/2018 4:03 AM CDT) Factor X activity 6 (L) 70 - 120 % [facility] DEPARTMENT OF PATHOLOGY AND GENOMIC MEDICINE Specimen Blood Performing Organization Address [facility] [place] [address] PATHOLOGY AND [facility] * VWF antigen (01/22/2018 4:03 AM CDT) VWF Ag 269 (H) 48 - 201 % [facility] DEPARTMENT PATHOLOGY AND [facility] MEDICINE Specimen Blood Performing Organization Address [facility] [place] [address] PATHOLOGY AND [facility] * Troponin (01/22/2018 4:03 AM CDT) Only the most recent of 2 results within the time period is included. Troponin <0.300 0.000 - 0.300 ng/mL [facility] DEPARTMENT OF Comment: PATHOLOGY AND 0.30 - 1.49 GENOMIC MEDICINE ng/mlMay indicate increased risk of acute coronary syndrome. >=1.5 ng/ml Consistent with acute myocardial infarction. The diagnostic value of a single normal or non-diagnostic result is questionable.Serial samples at 2-6 hour intervals are required to rule out acute myocardial injury. Specimen Plasma specimen Performing Organization Address [facility] Phone Number [facility] [address] [place] [address] PATHOLOGY AND GENOMIC MEDICINE * Beta-2 glycoprotein 1 antibody, IgG and IgM (01/22/2018 4:03 AM CDT) Beta-2 glycoprotein 1 <9.4 0.0 - 20.0 [facility] DEPARTMENT OF antibody, IgG Comment: PATHOLOGY AND Negative=<20.0 [facility] GENOMIC MEDICINE Positive >20.0 [facility] Beta-2 glycoprotein 1 18.7 0.0 - 20.0 [facility] DEPARTMENT OF antibody, IgM Comment: PATHOLOGY AND Negative=<20.0 [facility] GENOMIC MEDICINE Positive >20.0 [facility] Specimen Blood Performing Organization Address [facility] Centercode Phone Number [address] [place] [address] PATHOLOGY AND GENOMIC MEDICINE * Prepare fresh frozen plasma, 4 Units (01/22/2018 4:03 AM CDT) Only the most recent of 3 results within the time period is included. Product name Thawed Plasma [facility] DEPARTMENT OF PATHOLOGY AND GENOMIC MEDICINE Unit number [id number] [facility] DEPARTMENT OF PATHOLOGY AND GENOMIC MEDICINE Product code [id number] [facility] DEPARTMENT OF PATHOLOGY AND GENOMIC MEDICINE Dispense status Transfused [facility] DEPARTMENT OF PATHOLOGY AND GENOMIC MEDICINE Blood expiration date [facility] DEPARTMENT OF PATHOLOGY AND GENOMIC MEDICINE Blood type code [address] [facility] DEPARTMENT OF PATHOLOGY AND GENOMIC MEDICINE Blood type A POSITIVE [facility] DEPARTMENT OF PATHOLOGY AND GENOMIC MEDICINE Product name Thawed Plasma [facility] DEPARTMENT OF PATHOLOGY AND GENOMIC MEDICINE Unit number [id number] [facility] DEPARTMENT OF PATHOLOGY AND GENOMIC MEDICINE Product code [id number] [facility] DEPARTMENT OF PATHOLOGY AND GENOMIC MEDICINE Dispense status Transfused [facility] DEPARTMENT OF PATHOLOGY AND GENOMIC MEDICINE Blood expiration date [facility] DEPARTMENT OF PATHOLOGY AND GENOMIC MEDICINE Blood type code [address] [facility] DEPARTMENT OF PATHOLOGY AND GENOMIC MEDICINE Blood type A POSITIVE [facility] DEPARTMENT OF PATHOLOGY AND GENOMIC MEDICINE Product name Thawed Plasma [facility] DEPARTMENT OF PATHOLOGY AND GENOMIC MEDICINE Unit number [id number] [facility] DEPARTMENT OF PATHOLOGY AND GENOMIC MEDICINE Product code [id number] [facility] DEPARTMENT OF PATHOLOGY AND GENOMIC MEDICINE Dispense status Transfused [facility] DEPARTMENT OF PATHOLOGY AND GENOMIC MEDICINE Blood expiration date [facility] DEPARTMENT OF PATHOLOGY AND GENOMIC MEDICINE Blood type code [address] [facility] DEPARTMENT OF PATHOLOGY AND GENOMIC MEDICINE Blood type A POSITIVE [facility] DEPARTMENT OF PATHOLOGY AND GENOMIC MEDICINE Specimen Blood Performing Organization Address City/State/Zipcode Phone Number [facility] DEPARTMENT [id number] [place] [address] [place] [address] PATHOLOGY AND GENOMIC MEDICINE * Lupus anticoagulant panel (01/22/2018 4:03 AM CDT) Prothrombin time >90.0 (H) 12.0 - 15.0 sec [facility] DEPARTMENT OF PATHOLOGY AND GENOMIC MEDICINE INR >11.0 (HH) [facility] DEPARTMENT OF Comment: PATHOLOGY AND The International Normalized GENOMIC MEDICINE Ratio (INR) is a therapeutic monitoring tool for patients who are stable on oral anticoagulant therapy. An INR of 2.0-3.0 is suggested for deep vein thrombosis/pulmonary embolism. PTT 180.0 (HH) 23.0 - 36.0 sec [facility] DEPARTMENT OF Comment: PATHOLOGY AND PTT therapeutic range for GENOMIC MEDICINE unfractionated heparin is 61.0-112.0 seconds which corresponds to Anti-Xa 0.3-0.7 U/ml. PT/ INR/ PTT results called to and read back by Trever Soria/[facility]/ COAGULATION(name/location) at01/22/2018 12:17 (date/time) by _DS1. PTT lupus anticoagulant 179.4 (H) 27.0 - 38.0 sec [facility] DEPARTMENT OF Comment: PATHOLOGY AND Lupus anticoagulant (LA) panel [facility] consists of PT, PTT, PTT-LA, and DRVVT. If the PTT-LA is above the normal range, the hexagonal phospholipid will be performed. If the DRVVT is above the normal range, the DRVVC confirmatory test will be performed. A normal result for both the DRVVT and the PTT-LA means the patient is negative for lupus anticoagulant. The patient is considered positive for lupus anticoagulant if either the Ratio SCR/CONF or the hexagonal phospholipid is high (positive) on two occassions at least six weeks apart. Clinical confirmation is also required for diagnosis. DRVVT 103.9 (H) 29.0 - 46.0 sec [facility] DEPARTMENT OF PATHOLOGY AND GENOMIC MEDICINE Specimen Blood Performing Organization Address City/State/Zipcode Phone Number [facility] DEPARTMENT OF [address] [place] [address] PATHOLOGY AND GENOMIC MEDICINE * HIV 1, 2 antibody (01/22/2018 4:03 AM CDT) HIV 1, 2 antibody Non-Reactive Non-reactive [facility] DEPARTMENT OF Comment: PATHOLOGY AND Starting from November 06 2015, GENOMIC MEDICINE 4th generation HIV screening and confirmation assays are in use at [facility], consistent with the CDC-recommended algorithm. The screening test detects antibodies to HIV-1, HIV-2 and the p24 antigen. Positive screening results will be automatically reflexed to a HIV-1/HIV-2 differentiation assay. Indeterminant HIV-1 results will be further automatically reflexed to a nucleic acid test for detection of acute infection. Western blot will no longer be performed as a confirmation test. For a quick reference guide on the testing algorithm, please refer to: http://stacks.cdc.gov/view/cdc /63899. Specimen Blood Performing Organization Address City/[facility]/Zipcode Phone Number [facility] DEPARTMENT OF [address] [place] [address] PATHOLOGY AND GENOMIC MEDICINE * Cardiolipin antibodies (01/22/2018 4:03 AM CDT) Cardiolipin IgG 2 0 - 14 GPL [facility] DEPARTMENT OF Comment: PATHOLOGY AND Negative=<15 GENOMIC MEDICINE GPL Indeterminate=15-20 GPL Positive=>20 GPL Cardiolipin IgM 6 0 - 12 MPL [facility] DEPARTMENT OF Comment: PATHOLOGY AND Negative=<13 GENOMIC MEDICINE MPL Indeterminate=13-20 MPL Positive=>20 MPL Specimen Blood Performing Organization Address [facility]/Zipcode Phone Number [facility] DEPARTMENT [address] [place] [address] PATHOLOGY AND GENOMIC MEDICINE * Fibrinogen (01/22/2018 4:03 AM CDT) Fibrinogen 463 (H) 200 - 450 mg/dL [facility] DEPARTMENT OF PATHOLOGY AND GENOMIC MEDICINE Specimen Blood Performing Organization Address [facility] Cent[facility]ode Phone Number [facility] [place] [id number] [place] [address] [place] [address] PATHOLOGY AND GENOMIC MEDICINE * D-dimer (01/22/2018 4:03 AM CDT) D-dimer 0.92 (H) 0.00 - 0.40 ug/mL FEU [facility] DEPARTMENT OF Comment: PATHOLOGY AND Units are ug/ml Fibrinogen [facility] Equivalent Unit. When combined with low clinical probability, D-dimer results of less than 0.5 ug/ml FEU have a good negativepredictive value in excluding PE or DVT. For D-dimer results greater than 0.5ug/ml FEU further testing is indicated if PE or DVT is suspectedclinically. Elevated D-dimer results have been reported in DVT, PE, and DIC cases and may indicate the presence of a clot. D-dimer results may be elevated due to old age, , inflammatory diseases, trauma, post-operative states, sepsis, and malignancies. Specimen Blood Performing Organization Address [facility]/Zipcode Phone Number [facility] [place] [id number] [place] [address] [place] [address] PATHOLOGY AND GENOMIC MEDICINE * Factor XI assay (01/22/2018 4:03 AM CDT) Factor XI activity 121 60 - 145 % [facility] DEPARTMENT OF PATHOLOGY AND GENOMIC MEDICINE Specimen Blood Performing Organization Address City/[facility]/Zipcode Phone Number [facility] [place] [address] PATHOLOGY AND [facility] * Factor IX assay (01/22/2018 4:03 AM CDT) Factor IX activity 2 (L) 70 - 152 % [facility] DEPARTMENT OF PATHOLOGY AND GENOMIC MEDICINE Specimen Blood Performing Organization Address City/[facility]/Zipcode Phone Number [facility] [place] [address] PATHOLOGY AND [facility] * Factor VIII assay (01/22/2018 4:03 AM CDT) Factor VIII activity 381 (H) 60 - 150 % [facility] DEPARTMENT OF PATHOLOGY AND GENOMIC MEDICINE Specimen Blood Performing Organization Address City/[facility] Centercode Phone Number [facility] [place] [address] PATHOLOGY AND GENOMIC MEDICINE * Factor V assay (01/22/2018 4:03 AM CDT) Factor V activity 161 (H) 70 - 145 % [facility] DEPARTMENT OF PATHOLOGY AND GENOMIC MEDICINE Specimen Blood Performing Organization Address City/[facility] Centercode Phone Number [facility] [place] [address] PATHOLOGY AND GENOMIC MEDICINE * Type and screen (01/22/2018 4:03 AM CDT) ABO grouping A [facility] DEPARTMENT OF PATHOLOGY AND GENOMIC MEDICINE Rh type POS [facility] DEPARTMENT OF PATHOLOGY AND GENOMIC MEDICINE Antibody screen NEG [facility] DEPARTMENT OF PATHOLOGY AND GENOMIC MEDICINE Performing Organization Address City/[facility]/Zipcode Phone Number [address] [place] [address] PATHOLOGY AND GENOMIC MEDICINE * CADY (01/22/2018 4:03 AM CDT) CADY screen Negative Negative [facility] DEPARTMENT OF PATHOLOGY AND GENOMIC MEDICINE Specimen Blood Performing Organization Address City/[facility]/Zipcode Phone Number [facility] [place] [address] PATHOLOGY AND GENOMIC MEDICINE * Serum electrophoresis (01/22/2018 4:03 AM CDT) Protein 6.9 6.3 - 8.3 g/dL [facility] DEPARTMENT OF Comment: PATHOLOGY AND GENOMIC MEDICINE 4.6-7.0 g/dL 1 week 4.4-7.6 g/dL 7 months-1year 5.1-7.3 g/dL 1-2 years5.6-7 .5 g/dL >3 years6.0-8 .0 g/dL 18-150 6.3-8.3 g/dL SPE albumin 4.47 4.00 - 5.30 g/dL [facility] DEPARTMENT OF PATHOLOGY AND GENOMIC MEDICINE SPE alpha 1 0.20 0.10 - 0.25 g/dL [facility] DEPARTMENT OF PATHOLOGY AND GENOMIC MEDICINE SPE alpha 2 0.67 0.58 - 0.84 g/dL [facility] DEPARTMENT OF PATHOLOGY AND GENOMIC MEDICINE SPE beta 0.80 0.50 - 1.10 g/dL [facility] DEPARTMENT OF PATHOLOGY AND GENOMIC MEDICINE SPE gamma 0.76 0.60 - 1.30 g/dL [facility] DEPARTMENT OF PATHOLOGY AND GENOMIC MEDICINE SPE extended See CommentComment: A normal [facility] DEPARTMENT OF interpretation serum protein study. PATHOLOGY AND GENOMIC MEDICINE SPE interpretation See CommentComment: Haven Vasquez [facility] DEPARTMENT OF MD Olga; Brea Arias, PhD; Santo SANDOVAL AND MD Frederick, PhD GENOMIC MEDICINE Specimen Serum Performing Organization Address City/[facility] Centercode Phone Number [facility] [place] [address] PATHOLOGY AND GENOMIC MEDICINE * LDH (01/22/2018 4:03 AM CDT) LDH 531 (H) 87 - 225 U/L [facility] DEPARTMENT OF PATHOLOGY AND GENOMIC MEDICINE Specimen Plasma specimen Performing Organization Address City/[facility] Centercode Phone Number [address] [place] [address] PATHOLOGY AND GENOMIC MEDICINE * Haptoglobin (01/22/2018 4:03 AM CDT) Haptoglobin 179 30 - 200 mg/dL [facility] DEPARTMENT OF PATHOLOGY AND GENOMIC MEDICINE Specimen Plasma specimen Performing Organization Address City/[facility] Centercode Phone Number [place] [phone] PATHOLOGY AND GENOMIC MEDICINE * CT Abdomen Pelvis Wo Contrast (01/22/2018 1:24 AM CDT) Narrative Performed At EXAM: CT ABDOMEN PELVIS WO CONTRAST [facility] CLINICAL HISTORY:periumbilical abd pain with nausea eval colitis TECHNIQUE: Multidetector CT of the abdomen and pelvis was performed without intravenous administration of iodinated contrast with multiplanar reformats. CT scans are performed using radiation dose reduction techniques (iterative reconstruction and/or automated exposure control). Technical factors are evaluated and adjusted to ensure appropriate moderation of exposure. Automated dose management technology is applied to adjust radiation exposure while achieving a diagnostic quality image. COMPARISON:None FINDINGS: Evaluation of the parenchyma, lymph nodes, and the vessels is limited without intravenous contrast. Lung bases: Dependent atelectasis. Otherwise unremarkable. Liver:No evidence for suspicious focal hepatic lesion. Gallbladder and biliary:Unremarkable. Pancreas:No focal pancreatic lesion identified. No pancreatic duct dilatation. Spleen: Unremarkable. Gastrointestinal:Stomach is unremarkable in appearance. There are a few loops of left hemiabdominal small bowel which are prominent in size (measuring up to 3.6 cm in transverse dimension, coronal image 34). There is suggestion of mild mural thickening (for example axial image 107, series 2). Furthermore, scattered mild adjacent inflammatory changes are identified (image 96). The constellation of findings are suggestive of small bowel enteritis. A mechanical obstruction cannot be excluded but is considered less likely. Peritoneum:No ascites or free air. Adrenals: Unremarkable. Kidneys and ureters:There is no evidence for large irregular renal mass, obstructing calculi, hydronephrosis, or hydroureter. Urinary bladder: Unremarkable. Lymph nodes:No enlarged lymph nodes in the abdomen or pelvis. Vascular:Minimal atherosclerotic changes of the abdominal aorta and major branch vessels. Evaluation of vessel lumens is limited due to lack of IV contrast. Reproductive organs:Prostate is unremarkable in appearance. Abdominal wall:Unremarkable. Bones:Scattered degenerative changes of the spine are noted. No acute osseous abnormality identified. Of note, vertebral height loss of the lower thoracic vertebral bodies is noted, likely long-standing. IMPRESSION: 1.There are a few loops of left hemiabdominal small bowel which are prominent in size (measuring up to 3.6 cm in transverse dimension, coronal image 34). There is suggestion of mild mural thickening (for example axial image 107, series 2). Furthermore, scattered mild adjacent inflammatory changes are identified (image 96). The constellation of findings are suggestive of small bowel enteritis. A mechanical obstruction cannot be excluded but is considered less likely. [facility]-[id number] Procedure Note [facility], Radiology Results Incoming - 01/22/2018 1:41 AM CDT EXAM: CT ABDOMEN PELVIS WO CONTRAST CLINICAL HISTORY: periumbilical abd pain with nausea eval colitis TECHNIQUE: Multidetector CT of the abdomen and pelvis was performed without intravenous administration of iodinated contrast with multiplanar reformats. CT scans are performed using radiation dose reduction techniques (iterative reconstruction and/or automated exposure control). Technical factors are evaluated and adjusted to ensure appropriate moderation of exposure. Automated dose management technology is applied to adjust radiation exposure while achieving a diagnostic quality image. COMPARISON: None FINDINGS: Evaluation of the parenchyma, lymph nodes, and the vessels is limited without intravenous contrast. Lung bases: Dependent atelectasis. Otherwise unremarkable. Liver: No evidence for suspicious focal hepatic lesion. Gallbladder and biliary: Unremarkable. Pancreas: No focal pancreatic lesion identified. No pancreatic duct dilatation. Spleen: Unremarkable. Gastrointestinal: Stomach is unremarkable in appearance. There are a few loops of left hemiabdominal small bowel which are prominent in size (measuring up to 3.6 cm in transverse dimension, coronal image 34). There is suggestion of mild mural thickening (for example axial image 107, series 2). Furthermore, scattered mild adjacent inflammatory changes are identified (image 96). The constellation of findings are suggestive of small bowel enteritis. A mechanical obstruction cannot be excluded but is considered less likely. Peritoneum: No ascites or free air. Adrenals: Unremarkable. Kidneys and ureters: There is no evidence for large irregular renal mass, obstructing calculi, hydronephrosis, or hydroureter. Urinary bladder: Unremarkable. Lymph nodes: No enlarged lymph nodes in the abdomen or pelvis. Vascular: Minimal atherosclerotic changes of the abdominal aorta and major branch vessels. Evaluation of vessel lumens is limited due to lack of IV contrast. Reproductive organs: Prostate is unremarkable in appearance. Abdominal wall: Unremarkable. Bones: Scattered degenerative changes of the spine are noted. No acute osseous abnormality identified. Of note, vertebral height loss of the lower thoracic vertebral bodies is noted, likely long-standing. IMPRESSION: 1. There are a few loops of left hemiabdominal small bowel which are prominent in size (measuring up to 3.6 cm in transverse dimension, coronal image 34). There is suggestion of mild mural thickening (for example axial image 107, series 2). Furthermore, scattered mild adjacent inflammatory changes are identified (image 96). The constellation of findings are suggestive of small bowel enteritis. A mechanical obstruction cannot be excluded but is considered less likely. [facility]-[id number] Performing Organization Address City/[facility]/Zipcode Phone Number [facility] [address] [place] [address] * PV Duplex Venous Lower Extremity (01/22/2018 1:05 AM CDT) Narrative Performed At [facility] There is evidence of thrombosis of the distal femoral vein, popliteal vein, and tibial veins with recannalization suggestive of subacute or chronic thrombosis. Performing Organization Address City/[facility] Centercode Phone Number [facility] [address] [place] [address] * Urinalysis screen and microscopy, with reflex to culture (01/22/2018 12:22 AM CDT) Specimen site Clean catch [facility] DEPARTMENT OF PATHOLOGY AND GENOMIC MEDICINE Color, UA Yellow [facility] DEPARTMENT OF PATHOLOGY AND GENOMIC MEDICINE Appearance, UA Slightly-Cloudy [facility] DEPARTMENT OF PATHOLOGY AND GENOMIC MEDICINE Specific gravity, UA 1.023 1.001 - 1.[address] [facility] DEPARTMENT OF PATHOLOGY AND GENOMIC MEDICINE pH, UA 5.0 5.0 - 8.[address] [facility] DEPARTMENT OF PATHOLOGY AND GENOMIC MEDICINE Protein, UA 1+ (A) Negative [facility] DEPARTMENT OF PATHOLOGY AND GENOMIC MEDICINE Glucose, UA Negative Negative [facility] DEPARTMENT OF PATHOLOGY AND GENOMIC MEDICINE Ketones, UA Negative Negative [facility] DEPARTMENT OF PATHOLOGY AND GENOMIC MEDICINE Bilirubin, UA Negative Negative [facility] DEPARTMENT OF PATHOLOGY AND GENOMIC MEDICINE Blood, UA Large (A) Negative [facility] DEPARTMENT OF PATHOLOGY AND GENOMIC MEDICINE Nitrite, UA Negative Negative [facility] DEPARTMENT OF PATHOLOGY AND GENOMIC MEDICINE Urobilinogen, UA Negative <2.[address] [facility] DEPARTMENT OF PATHOLOGY AND GENOMIC MEDICINE Leukocyte esterase, UA Negative Negative [facility] DEPARTMENT OF PATHOLOGY AND GENOMIC MEDICINE WBC, UA 0-5 0 - 1 /HPF [facility] DEPARTMENT OF PATHOLOGY AND GENOMIC MEDICINE RBC, UA 61-80 (H) 0 - 5 /HPF [facility] DEPARTMENT OF PATHOLOGY AND GENOMIC MEDICINE Bacteria, UA None seen None seen [facility] DEPARTMENT OF PATHOLOGY AND GENOMIC MEDICINE Yeast, UA None seen [facility] DEPARTMENT OF PATHOLOGY AND GENOMIC MEDICINE Yeast with pseudohyphae, None seen [facility] DEPARTMENT OF PATHOLOGY AND GENOMIC MEDICINE Specimen Urine Performing Organization Address City/[facility]/Zipcode Phone Number [place] [address] [address] [place] [address] PATHOLOGY AND GENOMIC MEDICINE * Miscellaneous referral test (01/22/2018 12:22 AM CDT) [facility] [place] ANTICOAGULANT POISING PANEL [place] [facility] [place] result see note (A) [facility] Comment: Miscellaneous NMS Refrigerated [facility] test code [id number] Test Name: [id number] Anticoagulant Poisoning Panel (Qualitative), Serum/Plasma - - - - - - - - - - - - - - - - - - - - - - - - - - - - - - - Reporting AnalysisRe sultUnits Limit Notes WARFARINPo sitiveng/mL 10 Synonym(s): Coumadin Normal: None Detected DICUMAROL None Detng/mL 10 Normal: None Detected DIPHACINONNone Detng/mL 10 Synonym(s): Diphenadione Normal: None Detected CHLORPHACINone Detng/mL 10 Normal: None Detected DIFENACOUMNone Detng/mL 10 Synonym(s): Diphenacoum Normal: None Detected BRODIFACOUNone Detng/mL 10 Synonym(s): Alexey(R) Normal: None Detected BROMADIOL None Detng/mL 10 Normal: None Detected - - - - - - - - - - - - - - - - - - - - - - - - - - - - - - Analysis by High Performance Liquid Chromatography/ Tandem Mass Spectrometry (LC-MS/MS) sent to [facility] Testing performed at [employer] [address] [place] [id number] CLIA [id number] Narrative Performed At ANTICOAGULANT POISONING PANEL (NMS LAB) [facility] Anticoagulant Poisoning Panel (Qualitative), Serum/Plasma Test (0406SP) [facility] Performing Organization Address [facility] Centercone Phone Number [facility] [address] [place] [address] * Urine culture (01/22/2018 12:22 AM CDT) Urine culture SEE COMMENTComment: [facility] DEPARTMENT OF Bacteriuria screen negative. PATHOLOGY AND GENOMIC MEDICINE Specimen Urine Performing Organization Address [facility] Phone Number [address] [place] [address] PATHOLOGY AND GENOMIC MEDICINE * B natriuretic peptide (01/22/2018 12:22 AM CDT) BNP 52 0 - 100 pg/mL [facility] DEPARTMENT OF PATHOLOGY AND GENOMIC MEDICINE Specimen Blood Performing Organization Address [facility] Phone Number [facility] [id number] [place] [address] [place] [address] PATHOLOGY AND GENOMIC MEDICINE * Lipase level (01/22/2018 12:22 AM CDT) Lipase 49 13 - 60 U/L [facility] DEPARTMENT OF PATHOLOGY AND GENOMIC MEDICINE Specimen Plasma specimen Performing Organization Address City/State/Zipcode Phone Number [facility] [place] [address] [place] [address] PATHOLOGY AND GENOMIC MEDICINE after 10/25/2017 Insurance Payer Benefit Subscriber ID Type Phone Address Plan / Group BCBS BCBS OUT xxxxxxxxxxxx PPO OF STATE (Home) [place] [address] Advance Directives Patient has advance care planning documents, and code status on file. For more i nformation, please contact: Norris Wilkerson [address] [place] [address] Date Inactivated Comments Code Status Date Activated 02/03/2018 6:14 PM Full Code 01/22/2018 6:02 AM Code Status decision reached by: Patient
--- OUTSIDE RECORDS SUMMARY | 2018-10-26 13:58 | XMS REPORT | Clinical Summary ---
Author Author [place] Reflexis SystemsLost Rivers Medical CenterStrataGent Life Sciences [facility] CenterGreenko GroupCascade Valley Hospital Address Unknown Phone Unavailable Care Team Providers Care Clam Picker Name Role Phone Red Escamilla PCP Allergies No Known Allergies Medications End Date Status Medication Sig Dispensed Refills Start Date Active carvedilol (COREG) 25 MG Take 25 mg by 0 tablet mouth 2 (two) times daily with breakfast and dinner. Active levothyroxine (SYNTHROID, Take 200 mcg 0 LEVOTHROID) 200 MCG by mouth tablet daily. Active warfarin (COUMADIN) 2.5 Take 2.5 mg 0 MG tablet by mouth daily. Active amiodarone (PACERONE) 200 Take 1 tablet 60 tablet 0 04/27/201 MG tablet (200 mg 5 total) by mouth 2 (two) times daily. Active lisinopril Take 40 mg by 0 (PRINIVIL,ZESTRIL) 40 MG mouth daily. tablet Active furosemide (LASIX) 40 MG Take 40 mg by 0 tablet mouth 2 (two) times daily take 1/2 tab as needed . Active tamsulosin (FLOMAX) 0.4 Take 0.4 mg 0 mg Cap 24 hr capsule by mouth daily. Active Problems Problem Noted Date Atrial fibrillation 04/27/2015 Encounters Care Team Description Date Type Specialty Rani Guzman MD 10/06/2018 Hospital Encounter Rani Guzman MD 10/06/2018 Outside Orders Rani Guzman MD 10/06/2018 Orders Only Cardiology after 10/25/2017 Social History Date Tobacco Use Types Packs/Day Years Used Never Smoker Smokeless Tobacco: Current User Alcohol Use Drinks/Week oz/Week Comments Yes 4 per week Sex Assigned at Date Recorded Not on file Industry Job Start Date Occupation Not on file Not on file Not on file Travel End Travel History Travel Start No recent travel history available. Last Filed Vital Signs Time Taken Vital Sign Reading 10/06/2018 10:20 AM ELECTRONIC ENGINEERING TECHNICIAN Blood Pressure 119/81 10/06/2018 10:20 AM ELECTRONIC ENGINEERING TECHNICIAN Pulse 54 10/06/2018 8:43 AM ELECTRONIC ENGINEERING TECHNICIAN Temperature 36.8 C (98.2 F) 10/06/2018 10:20 AM ELECTRONIC ENGINEERING TECHNICIAN Respiratory Rate 20 10/06/2018 10:20 AM ELECTRONIC ENGINEERING TECHNICIAN Oxygen Saturation 96% - Inhaled Oxygen - Concentration 10/06/2018 8:43 AM ELECTRONIC ENGINEERING TECHNICIAN Weight 130.6 kg (288 lb) 10/06/2018 8:43 AM ELECTRONIC ENGINEERING TECHNICIAN Height 182.9 cm (6') 10/06/2018 8:43 AM ELECTRONIC ENGINEERING TECHNICIAN Body Mass Index 39.06 Plan of Treatment Not on file Procedures Comments Procedure Name Priority Date/Time Associated Diagnosis RHYTHM STRIP - SCAN 10/08/2018 3:10 PM ELECTRONIC ENGINEERING TECHNICIAN REPORT OF PROCEDURE - 10/08/2018 ENDOSCOPY SCAN 3:10 PM ELECTRONIC ENGINEERING TECHNICIAN PROTHROMBIN TIME/INR STAT 10/06/2018 9:15 AM ELECTRONIC ENGINEERING TECHNICIAN after 10/25/2017 Results * RHYTHM STRIP - SCAN (10/08/2018 3:10 PM ELECTRONIC ENGINEERING TECHNICIAN) Narrative Performed At * EKG-SCANNED (10/08/2018 3:10 PM ELECTRONIC ENGINEERING TECHNICIAN) Narrative Performed At * Prothrombin time/INR (10/06/2018 9:15 AM ELECTRONIC ENGINEERING TECHNICIAN) Protime 17.4 (H) 11.7 - 14.7 seconds [facility] INR 1.4 <=5.9 [facility] Specimen Blood - Arm, Left Narrative Performed At RECOMMENDED COUMADIN/WARFARIN INR THERAPY RANGES [facility] STANDARD DOSE: 2.0 - 3.0 Includes: PROPHYLAXIS for venous thrombosis, [facility] systemic embolization; TREATMENT for venous thrombosis and/or pulmonary embolus. HIGH RISK: Target INR is 2.5-3.5 for patients with mechanical heart valves. Performing Organization Address City/State/Zipcode Phone Number [facility] [address] [place] [address] [facility]ENTER after 10/25/2017 Insurance Payer Benefit Subscriber ID Type Phone Address Plan / Group BLUE [employer]OSS/[employer] BCBS OS xxxxxxxxxxxx PPO [phone] [address] POS/PPO/[place] [address] O Advance Directives For more information, please contact: [facility] [address] [place] [address] Date Inactivated Comments Code Status Date Activated 10/06/2018 12:37 PM Full Code 10/06/2018 8:47 AM This code status was determined by: Patient 10/06/2018 8:47 AM Full Code 10/06/2018 8:44 AM This code status was determined by: Patient 04/27/2015 1:20 PM Full Code 04/27/2015 8:04 AM This code status was determined by: Patient
--- OUTSIDE RECORDS SUMMARY | 2018-10-26 13:58 | XMS REPORT ---
Author Author [facility] Address Unknown Phone Unavailable Care Team Providers Care Orthotist Prosthetist Name Role Phone TAMMY PELLETIER Unavailable Unavailable Problems This patient has no known problems. Allergies, Adverse Reactions, Alerts This patient has no known allergies or adverse reactions. Medications This patient has no known medications. Results Test Description Test Time Test Comments Text Results Atomic Results Result Comments PROTHROMBIN TIME/INR 2018-10-06 09:40:00 PROTIME (BEAKER) (test [id number]) 17.4 seconds 11.7-14.7 INR (BEAKER) (test [id number]) 1.4 <=5.9 RECOMMENDED COUMADIN/WARFARIN INR THERAPY RANGESSTANDARD DOSE: 2.0 - 3.0 Inclu fawad: PROPHYLAXIS for venous thrombosis, systemic embolization; TREATMENT for elva ous thrombosis and/or pulmonary embolus.HIGH RISK: Target INR is 2.5-3.5 for pat ients with mechanical heart valves.
[2018-10-26 16:35] VITALS: BP 161/92
== END | disposition home or self-care (01) ==
LOC: OR 13:55
PROVIDERS: ATTEND Ophthalmology
DX: H25.12 Age-related nuclear cataract, left eye (principal); I48.91 Unspecified atrial fibrillation; I11.0 Hypertensive heart disease with heart failure; I50.9 Heart failure, unspecified; E78.5 Hyperlipidemia, unspecified; E03.9 Hypothyroidism, unspecified; Z79.82 Long term (current) use of aspirin
CPT/HCPCS: 66984; J2250; V2632

== ENCOUNTER → 2018-11-09 | Day surgery (SDC) | payer BC ==
[~2018-11-09] MED LIST changes: +FUROSEMIDE40 MG PO; -OR PHACO EYE KIT ONE; -PREOP PHACO EYE KIT ONE
--- OUTSIDE RECORDS SUMMARY | 2018-11-09 13:14 | XMS REPORT | Clinical Summary ---
Author Author [place] EnzymotecBenewah Community HospitalTranscatheter TechnologiesMena Medical [email or web address]. Anne Hospital Address Unknown Phone Unavailable Care Team Providers Care Associate Application Developer Name Role Phone Red Escamilla PCP Allergies [...] Guzman MD 10/06/2018 Orders Only Cardiology after 11/08/2017 Social History Date Tobacco Use Types Packs/Day [...] Taken Vital Sign Reading 10/06/2018 10:20 AM UNIT AIDE Blood Pressure 119/81 10/06/2018 10:20 AM UNIT AIDE Pulse 54 10/06/2018 8:43 AM UNIT AIDE Temperature 36.8 C (98.2 F) 10/06/2018 10:20 AM UNIT AIDE Respiratory Rate 20 10/06/2018 10:20 AM UNIT AIDE Oxygen Saturation 96% - Inhaled Oxygen - Concentration 10/06/2018 8:43 AM UNIT AIDE Weight 130.6 kg (288 lb) 10/06/2018 8:43 AM UNIT AIDE Height 182.9 cm (6') 10/06/2018 8:43 AM UNIT AIDE Body Mass Index 39.06 Plan of Treatment Not on file Procedures Comments Procedure Name Priority Date/Time Associated Diagnosis RHYTHM STRIP - SCAN 10/08/2018 3:10 PM UNIT AIDE REPORT OF PROCEDURE - 10/08/2018 ENDOSCOPY SCAN 3:10 PM UNIT AIDE PROTHROMBIN TIME/INR STAT 10/06/2018 9:15 AM UNIT AIDE after 11/08/2017 Results * RHYTHM STRIP - SCAN (10/08/2018 3:10 PM UNIT AIDE) Narrative Performed At * EKG-SCANNED (10/08/2018 3:10 PM UNIT AIDE) Narrative Performed At * Prothrombin time/INR (10/06/2018 9:15 AM UNIT AIDE) Protime 17.4 (H) 11.7 - 14.7 seconds [facility] INR 1.4 <=5.9 [facility] Specimen Blood - Arm, Left Narrative Performed At RECOMMENDED COUMADIN/WARFARIN INR THERAPY RANGES [facility] STANDARD DOSE: 2.0 - 3.0 Includes: PROPHYLAXIS for venous thrombosis, [facility] systemic embolization; TREATMENT for venous thrombosis and/or pulmonary embolus. HIGH RISK: Target INR is 2.5-3.5 for patients with mechanical heart valves. Performing Organization Address City/State/Zipcode Phone Number [facility] [address] [place] [address] MEDICAL CENTER after 11/08/2017 Insurance Payer Benefit Subscriber ID Type Phone Address Plan / Group BLUE CROSS/[employer]IELD BCBS OS xxxxxxxxxxxx PPO [phone] [address] POS/PPO/[place] [address] O Advance Directives For more information, please contact: [facility] [address] [place] [address] Date Inactivated Comments Code Status Date Activated 10/06/2018 12:37 PM Full Code 10/06/2018 8:47 AM This code status was determined by: Patient 10/06/2018 8:47 AM Full Code 10/06/2018 8:44 AM This code status was determined by: Patient 04/27/2015 1:20 PM Full Code 04/27/2015 8:04 AM This code status was determined by: Patient
--- OUTSIDE RECORDS SUMMARY | 2018-11-09 13:14 | XMS REPORT | Clinical Summary ---
Author Author [facility] [employer] [facility] [place] [employer] Address Unknown Phone Unavailable Care Team Providers Care Imaging Science Professor Name Role Phone Red Escamilla MD PCP [...] Care Team Description Date Type Specialty Chauncey Lagnston DO Encounter for post surgical wound check [...] thrombophlebitis, right; SBO (small bowel obstruction) 01/21/2018 [facility] General Surgery - Encounter 02/03/2018 Genesis Young PA-C Marcantel, Derek L, MD Nondisplaced fracture of distal phalanx of left great toe, initial encounter for open fracture (Primary Dx) 11/19/2017 Emergency Emergency Medicine after 11/08/2017 Immunizations Name Dates Previously Given Next Due [...] FROZEN Routine 01/25/2018 PLASMA 6:11 PM CDT VT AN ELECTIVE Routine 01/25/2018 ENDOTRACHEAL AIRWAY 5:47 [...] MMODE SPECTRAL 1:45 PM CDT COLOR DOPPLER ([id number]) HEPATITIS ACUTE PANEL Routine 01/22/2018 12:21 PM [...] FROZEN STAT 01/22/2018 PLASMA 7:37 AM CDT VT CRITICAL CARE, E/M Routine 01/22/2018 30-74 MINUTES [...] 11/19/2017 W/AUTO DIFF 4:45 PM CDT after 11/08/2017 Results * Estimated GFR (02/03/2018 4:44 AM CDT) Only the most recent of 11 results within the time period is included. GFR Non Af Amer 52 (A) mL/min/1.73 m2 [facility] DEPARTMENT OF PATHOLOGY AND GENOMIC MEDICINE GFR Af Amer 62 mL/min/1.73 m2 [facility] DEPARTMENT OF Comment: PATHOLOGY AND Chronic kidney [...] specimen Performing Organization Address City/State/Zipcode Phone Number [facility] [place] [address] [place] [address] PATHOLOGY AND [employer] MEDICINE * CBC with platelet and differential (02/03/2018 4:44 AM CDT) Only the most recent of 9 results within the time period is included. WBC 7.98 4.50 - 11.00 k/uL [facility] DEPARTMENT OF PATHOLOGY AND GENOMIC MEDICINE RBC 3.51 (L) 4.40 - 6.00 m/uL [facility] PATHOLOGY AND GENOMIC MEDICINE HGB 10.3 (L) 14.0 - 18.0 g/dL [facility] PATHOLOGY AND GENOMIC MEDICINE HCT 31.6 (L) 41.0 - 51.0 % [facility] DEPARTMENT PATHOLOGY AND GENOMIC MEDICINE MCV 90.0 82.0 - 100.0 fL [facility] DEPARTMENT OF PATHOLOGY AND GENOMIC MEDICINE MCH 29.3 27.0 - 34.0 pg [facility] DEPARTMENT OF PATHOLOGY AND GENOMIC MEDICINE MCHC 32.6 31.0 - 37.0 g/dL [facility] DEPARTMENT OF PATHOLOGY AND GENOMIC MEDICINE RDW - SD 55.0 37.0 - 55.0 fL [facility] DEPARTMENT PATHOLOGY AND GENOMIC MEDICINE MPV 9.6 8.8 - 13.2 fL [facility] DEPARTMENT OF PATHOLOGY AND GENOMIC MEDICINE Platelet count 280 150 - 400 k/uL [facility] DEPARTMENT PATHOLOGY AND GENOMIC MEDICINE Nucleated RBC 0.00 /100 WBC [facility] DEPARTMENT OF PATHOLOGY AND GENOMIC MEDICINE Neutrophils 73.0 (H) 39.0 - 69.0 % [facility] DEPARTMENT OF PATHOLOGY AND GENOMIC MEDICINE Lymphocytes 13.7 (L) 25.0 - 45.0 % [facility] DEPARTMENT OF PATHOLOGY AND GENOMIC MEDICINE Monocytes 8.8 0.0 - 10.0 % [facility] DEPARTMENT OF PATHOLOGY AND GENOMIC MEDICINE Eosinophils 3.1 0.0 - 5.0 % [facility] DEPARTMENT OF PATHOLOGY AND GENOMIC MEDICINE Basophils 0.5 0.0 - 1.0 % [facility] DEPARTMENT OF PATHOLOGY AND GENOMIC MEDICINE Specimen Blood Performing Organization Address [facility] Phone Number [facility] [id number] [place] [address] [place] [address] PATHOLOGY [facility] * Hepatic function panel (02/03/2018 4:44 AM CDT) Only the most recent of 5 results within the time period is included. Albumin 2.8 (L) 3.5 - 5.0 g/dL [facility] DEPARTMENT OF PATHOLOGY AND GENOMIC MEDICINE Total bilirubin 1.4 (H) 0.0 - 1.2 mg/dL [facility] DEPARTMENT OF PATHOLOGY AND GENOMIC MEDICINE Bilirubin direct 0.5 (H) 0.0 - 0.3 mg/dL [facility] DEPARTMENT OF PATHOLOGY AND GENOMIC MEDICINE Alkaline phosphatase 58 40 - 129 U/L [facility] DEPARTMENT OF PATHOLOGY AND GENOMIC MEDICINE Protein 5.6 (L) 6.3 - 8.3 g/dL [facility] DEPARTMENT OF Comment: PATHOLOGY AND GENOMIC MEDICINE 4.6-7.0 g/dL 1 week 4.4-7.6 g/dL 7 months-1year 5.1-7.3 g/dL 1-2 years5.6-7 .5 g/dL >3 years6.0-8 .0 g/dL 18-150 6.3-8.3 g/dL ALT 157 (H) 5 - 50 U/L [facility] DEPARTMENT OF PATHOLOGY AND GENOMIC MEDICINE AST 92 (H) 10 - 50 U/L [facility] DEPARTMENT OF PATHOLOGY AND GENOMIC MEDICINE Specimen Plasma specimen Performing Organization Address [facility] Phone Number [facility] [id number] [place] [address] [place] [phone] PATHOLOGY [facility] * Basic metabolic panel (02/03/2018 4:44 AM CDT) Only the most recent of 6 results within the time period is included. Sodium 137 135 - 148 mEq/L [facility] DEPARTMENT OF PATHOLOGY AND GENOMIC MEDICINE Potassium 3.7 3.5 - 5.0 mEq/L [facility] DEPARTMENT OF PATHOLOGY AND GENOMIC MEDICINE Chloride 98 98 - 112 mEq/L [facility] OF PATHOLOGY AND GENOMIC MEDICINE CO2 31 24 - 31 mEq/L [facility] DEPARTMENT OF PATHOLOGY AND GENOMIC MEDICINE Anion gap 8@ANIO 7 - 15 mEq/L [facility] OF PATHOLOGY AND GENOMIC MEDICINE BUN 17 8 - 23 mg/dL [facility] DEPARTMENT OF PATHOLOGY AND GENOMIC MEDICINE Creatinine 1.4 (H) 0.7 - 1.2 mg/dL [facility] DEPARTMENT OF PATHOLOGY AND GENOMIC MEDICINE Glucose 120 (H) 65 - 99 mg/dL [facility] OF PATHOLOGY AND GENOMIC MEDICINE Calcium 7.7 (L) 8.8 - 10.2 mg/dL [facility] OF PATHOLOGY AND GENOMIC MEDICINE Specimen Plasma specimen Performing Organization Address City/State/Zipcode Phone Number [place] [phone] [place] [address] PATHOLOGY AND GENOMIC MEDICINE * US Abdomen [...] nuclear hepatic biliary scan. 2.Otherwise unremarkable study. [id number] Procedure Note Interface, Radiology Results Incoming - [...] hepatic biliary scan. 2. Otherwise unremarkable study. [id number] Performing Organization Address City/[facility]/Zipcode Phone Number [facility] [address] [place] [address] * Prothrombin time with INR (02/02/2018 4:18 AM CDT) Only the most recent of 13 results within the time period is included. Prothrombin time 19.6 (H) 12.0 - 15.0 sec [facility] DEPARTMENT OF PATHOLOGY AND GENOMIC MEDICINE INR 1.6 [facility] DEPARTMENT OF Comment: PATHOLOGY AND The International Normalized GENOMIC MEDICINE Ratio (INR) is a therapeutic monitoring tool for patients who are stable on oral anticoagulant therapy. An INR of 2.0-3.0 is suggested for deep vein thrombosis/pulmonary embolism. Specimen Blood Performing Organization Address City/State/Zipcode Phone Number [facility] OF [address] [place] [address] [place] [address] PATHOLOGY AND GENOMIC MEDICINE * Partial thromboplastin time, activated (02/01/2018 5:15 AM CDT) Only the most recent of 6 results within the time period is included. PTT 31.4 23.0 - 36.0 sec [facility] DEPARTMENT OF Comment: PATHOLOGY AND PTT therapeutic range for GENOMIC MEDICINE unfractionated heparin is 61.0-112.0 seconds which corresponds to Anti-Xa 0.3-0.7 U/ml. Specimen Blood Performing Organization Address City/State/Zipcode Phone Number [facility] [place] [address] [place] [address] PATHOLOGY AND GENOMIC MEDICINE * Comprehensive metabolic panel (02/01/2018 5:15 AM CDT) Only the most recent of 5 results within the time period is included. Sodium 126 (L) 135 - 148 mEq/L [facility] DEPARTMENT OF PATHOLOGY AND GENOMIC MEDICINE Potassium 4.0 3.5 - 5.0 mEq/L [facility] DEPARTMENT OF PATHOLOGY AND GENOMIC MEDICINE Chloride 93 (L) 98 - 112 mEq/L [facility] DEPARTMENT OF PATHOLOGY AND GENOMIC MEDICINE CO2 24 24 - 31 mEq/L [facility] DEPARTMENT OF PATHOLOGY AND GENOMIC MEDICINE Anion gap 9@ANIO 7 - 15 mEq/L [facility] DEPARTMENT OF PATHOLOGY AND GENOMIC MEDICINE BUN 21 8 - 23 mg/dL [facility] DEPARTMENT OF PATHOLOGY AND GENOMIC MEDICINE Creatinine 1.6 (H) 0.7 - 1.2 mg/dL [facility] DEPARTMENT OF PATHOLOGY AND GENOMIC MEDICINE Glucose 107 (H) 65 - 99 mg/dL [facility] DEPARTMENT OF PATHOLOGY AND GENOMIC MEDICINE Calcium 7.7 (L) 8.8 - 10.2 mg/dL [facility] DEPARTMENT OF PATHOLOGY AND GENOMIC MEDICINE Protein 5.4 (L) 6.3 - 8.3 g/dL [facility] DEPARTMENT OF Comment: PATHOLOGY AND GENOMIC MEDICINE 4.6-7.0 g/dL 1 week 4.4-7.6 g/dL 7 months-1year 5.1-7.3 g/dL 1-2 years5.6-7 .5 g/dL >3 years6.0-8 .0 g/dL 18-150 6.3-8.3 g/dL Albumin 2.8 (L) 3.5 - 5.0 g/dL [facility] DEPARTMENT OF PATHOLOGY AND GENOMIC MEDICINE A/G ratio 1.1 0.7 - 3.8 [facility] DEPARTMENT OF PATHOLOGY AND GENOMIC MEDICINE Alkaline phosphatase 45 40 - 129 U/L [facility] DEPARTMENT OF PATHOLOGY AND GENOMIC MEDICINE AST 117 (H) 10 - 50 U/L [facility] DEPARTMENT OF PATHOLOGY AND GENOMIC MEDICINE ALT 179 (H) 5 - 50 U/L [facility] DEPARTMENT OF PATHOLOGY AND GENOMIC MEDICINE Total bilirubin 2.1 (H) 0.0 - 1.2 mg/dL [facility] DEPARTMENT OF PATHOLOGY AND GENOMIC MEDICINE Specimen Plasma specimen Performing Organization Address City/[facility] Phone Number [facility] DEPARTMENT [address] [place] [address] PATHOLOGY AND GENOMIC MEDICINE * XR Abdomen [...] 2. There is no bowel obstruction present. [id number] Procedure Note Hm Interface, Radiology Results Incoming [...] 2. There is no bowel obstruction present. [id number] Performing Organization Address City/[facility]/Zipcode Phone Number [facility] [address] [place] [address] * Smear review (01/31/2018 5:35 AM CDT) Platelet slide review Sara adequate [facility] DEPARTMENT OF PATHOLOGY AND GENOMIC MEDICINE Anisocytosis Moderate [facility] DEPARTMENT OF PATHOLOGY AND GENOMIC MEDICINE Polychromasia Moderate [facility] DEPARTMENT OF PATHOLOGY AND GENOMIC MEDICINE Performing Organization Address City/[facility]/Zipcode Phone Number [facility] DEPARTMENT OF [address] [place] [address] [place] [address] PATHOLOGY AND GENOMIC MEDICINE * Manual differential (01/27/2018 6:57 AM CDT) Only the most recent of 2 results within the time period is included. Manual differential PERFORMED [facility] DEPARTMENT OF PATHOLOGY AND GENOMIC MEDICINE Neutrophils 79.0 (H) 39.0 - 69.0 % [facility] DEPARTMENT OF PATHOLOGY AND GENOMIC MEDICINE Lymphocytes 15.0 (L) 25.0 - 45.0 % [facility] DEPARTMENT OF PATHOLOGY AND GENOMIC MEDICINE Monocytes 5.0 0.0 - 10.0 % [facility] DEPARTMENT OF PATHOLOGY AND GENOMIC MEDICINE Eosinophils 1.0 0.0 - 5.0 % [facility] DEPARTMENT OF PATHOLOGY AND GENOMIC MEDICINE Basophils 0.0 0.0 - 1.0 % [facility] DEPARTMENT OF PATHOLOGY AND GENOMIC MEDICINE Metamyelocytes 0 % [facility] DEPARTMENT OF PATHOLOGY AND GENOMIC MEDICINE Promyelocytes 0 % [facility] DEPARTMENT OF PATHOLOGY AND GENOMIC MEDICINE Platelet slide review Sara adequate [facility] DEPARTMENT OF PATHOLOGY AND GENOMIC MEDICINE Anisocytosis Moderate [facility] DEPARTMENT OF PATHOLOGY AND GENOMIC MEDICINE Polychromasia FEW [facility] DEPARTMENT OF PATHOLOGY AND GENOMIC MEDICINE Ovalocytes Moderate [facility] DEPARTMENT OF PATHOLOGY AND GENOMIC MEDICINE Anisochromia Moderate [facility] DEPARTMENT OF PATHOLOGY AND GENOMIC MEDICINE Performing Organization Address City/[facility] Phone Number [address] [place] [address] PATHOLOGY AND GENOMIC MEDICINE * Magnesium level (01/26/2018 5:32 AM CDT) Only the most recent of 4 results within the time period is included. Magnesium 2.1 1.6 - 2.4 mg/dL [facility] DEPARTMENT OF PATHOLOGY AND GENOMIC MEDICINE Specimen Plasma specimen Performing Organization Address City/[facility] Phone Number [address] [place] [address] PATHOLOGY AND GENOMIC MEDICINE * Factor VII assay (01/25/2018 9:09 PM CDT) Only the most recent of 2 results within the time period is included. Factor VII activity 37 (L) 70 - 150 % [facility] DEPARTMENT OF PATHOLOGY AND GENOMIC MEDICINE Specimen Blood Performing Organization Address City/[facility]/Zipcode Phone Number [facility] DEPARTMENT OF [address] [place] [address] PATHOLOGY AND GENOMIC MEDICINE * Factor II assay (01/25/2018 9:09 PM CDT) Only the most recent of 2 results within the time period is included. Factor II activity 37 (L) 70 - 120 % [facility] DEPARTMENT OF PATHOLOGY AND GENOMIC MEDICINE Specimen Blood Performing Organization Address City/[facility]/Zipcode Phone Number [facility] DEPARTMENT OF [address] [place] [address] PATHOLOGY AND GENOMIC MEDICINE * FL Small Bowel Series (01/25/2018 7:00 AM CDT) Narrative Performed At PROCEDURE:FL SMALL BOWEL [facility] CLINICAL HISTORY:OBSTRUCTION - INTESTINAL,small bowel obstruction COMPARISON:None. TECHNIQUE: A supervisor records change film was performed. A small bowel series was subsequently done using Gastrografin sequential overhead 15 minute-one hour abdominal films were obtained. FINDINGS: The supervisor records change film demonstrates dilated loops of small bowel [...] colon up to 9 hours of imaging. [id number] . Procedure Note Interface, Radiology Results Incoming - 01/25/2018 10:22 AM CDT PROCEDURE: FL SMALL BOWEL CLINICAL HISTORY: OBSTRUCTION - INTESTINAL, small bowel obstruction COMPARISON: None. TECHNIQUE: A supervisor records change film was performed. A small bowel series was subsequently done using Gastrografin sequential overhead 15 minute-one hour abdominal films were obtained. FINDINGS: The supervisor records change film demonstrates dilated loops of small bowel [...] colon up to 9 hours of imaging. [id number] . Performing Organization Address City/State/Zipcode Phone Number [facility] [address] [place] [address] * XR Foot 3+ Vw Right (01/23/2018 [...] metatarsals is apparent. There are vascular calcifications. [id number] Procedure Note Hm Interface, Radiology Results Incoming [...] metatarsals is apparent. There are vascular calcifications. [id number] Performing Organization Address City/State/Zipcode Phone Number [facility] [address] [place] [address] * Inhibit PT, PTT mix (01/22/2018 11:30 PM CDT) Only the most recent of 3 results within the time period is included. PT patient 0 minutes 21.6 (H) 12.0 - 15.0 sec [facility] DEPARTMENT OF PATHOLOGY AND GENOMIC MEDICINE PT 1:1 mix 0 minutes 14.4 12.0 - 15.0 sec [facility] DEPARTMENT OF PATHOLOGY AND GENOMIC MEDICINE PTT patient 0 minutes 53.9 (H) 23.0 - 36.0 sec [facility] DEPARTMENT OF Comment: PATHOLOGY AND Tests performed for mixing GENOMIC MEDICINE study interpretation. PT 22.0 sec (Nrml range 12.0-15.0 sec) PTT 51.3 sec (Nrml range 23.0-36.0 sec) FIB 536 mg/dL (Nrml range 200-450 mg/dL) Throm 15.4 sec (Nrml range 15.0-19.0 sec) PTT 1:1 mix 0 minutes 33.7 23.0 - 36.0 sec [facility] DEPARTMENT OF PATHOLOGY AND GENOMIC MEDICINE PTT patient 60 minutes 57.2 (H) 23.0 - 36.0 sec [facility] DEPARTMENT OF PATHOLOGY AND GENOMIC MEDICINE PTT 1:1 mix 60 minutes 35.8 23.0 - 36.0 sec [facility] DEPARTMENT OF PATHOLOGY AND GENOMIC MEDICINE PT, PTT mix SeeBelow sec [facility] DEPARTMENT OF interpretation Comment: PATHOLOGY AND Prolonged PT and PTT with GENOMIC MEDICINE complete correction, consistent with vitamin K dependent factor deficiency.Reviewed by Awa Holland M.D. Specimen Blood Performing Organization Address City/State/Zipcode Phone Number [facility] DEPARTMENT OF [address] [place] [address] PATHOLOGY AND GENOMIC MEDICINE * Hemoglobin & hematocrit (01/22/2018 11:30 PM CDT) Only the most recent of 3 results within the time period is included. HGB 10.9 (L) 14.0 - 18.0 g/dL [facility] DEPARTMENT OF PATHOLOGY AND GENOMIC MEDICINE HCT 33.4 (L) 41.0 - 51.0 % [facility] DEPARTMENT OF PATHOLOGY AND GENOMIC MEDICINE Specimen Blood Performing Organization Address City/State/Zipcode Phone Number [facility] [place] [address] [place] [address] PATHOLOGY AND GENOMIC MEDICINE * Echocardiogram complete [...] LV EF,BP 56.85 % [facility] [place],d A2C 8.85 cm [facility] [place],d A4C 9.67 cm [facility] [place],s A2C 5.87 cm [facility] [place],s A4C 7.53 cm [facility] LV,s 3.00 [...] [facility] Aortic Root 4.30 cm [facility] VT End Calvin Grad 8.31 [facility] VT End Diat Chavez 1.44 [facility] D [...] normal. No pericardial effusion Performing Organization Address City/[facility] Phone Number [facility] [address] [place] [address] * Lactic acid level, SEPSIS - Now and repeat 2x every 3 hours (01/22/2018 12:21 PM CDT) Only the most recent of 2 results within the time period is included. Lactic acid 1.6 0.5 - 2.2 mmol/L [facility] DEPARTMENT OF PATHOLOGY AND GENOMIC MEDICINE Specimen Plasma specimen Performing Organization Address [facility] Phone Number [address] [place] [phone] PATHOLOGY AND [facility] * Hepatitis acute panel (01/22/2018 12:21 PM CDT) Hepatitis A IgM Nonreactive Non-reactive [facility] DEPARTMENT OF PATHOLOGY AND GENOMIC MEDICINE Hepatitis B core IgM Nonreactive Non-reactive [facility] DEPARTMENT OF PATHOLOGY AND GENOMIC MEDICINE Hepatitis B surface Ag Nonreactive Non-reactive [facility] DEPARTMENT OF PATHOLOGY AND GENOMIC MEDICINE Hepatitis C Ab Nonreactive Non-reactive [facility] DEPARTMENT PATHOLOGY AND GENOMIC MEDICINE Specimen Serum Performing Organization Address [facility] Phone Number [address] [place] [phone] PATHOLOGY AND [facility] * Transfuse fresh frozen plasma (01/22/2018 9:55 [...] immunofunction 295 (H) 50 - 180 % [facility] DEPARTMENT OF PATHOLOGY AND GENOMIC MEDICINE Specimen Blood Performing Organization Address City/[facility]/[place] [address] PATHOLOGY AND GENOMIC MEDICINE * Hexagonal phospholipid (01/22/2018 4:03 AM CDT) Hexagonal phospholipid 64.9 sec [facility] DEPARTMENT OF tube #1 PATHOLOGY AND GENOMIC MEDICINE Hexagonal phospholipid 53.3 sec [facility] DEPARTMENT OF tube #2 PATHOLOGY AND GENOMIC MEDICINE Tube 1 - 2 11.6 (H) 0.0 - 8.0 sec [facility] DEPARTMENT OF PATHOLOGY AND GENOMIC MEDICINE LA interpretation Positive [facility] DEPARTMENT OF PATHOLOGY AND GENOMIC MEDICINE Specimen Blood Performing Organization Address City/[facility]/Zipcode Phone Number [address] [address] PATHOLOGY AND GENOMIC MEDICINE * DRVVC, DRVVT/DRVVC (01/22/2018 4:03 AM CDT) DRVVT 103.9 (H) 29.0 - 46.0 sec [facility] DEPARTMENT OF PATHOLOGY AND GENOMIC MEDICINE DRVVC 143.4 sec [facility] DEPARTMENT OF PATHOLOGY AND GENOMIC MEDICINE DRVVT/DRVVC ratio 0.72 0.00 - 1.22 sec [facility] DEPARTMENT OF PATHOLOGY AND GENOMIC MEDICINE Specimen Blood Performing Organization Address [facility] [place] [address] PATHOLOGY AND [facility] MEDICINE * Factor X assay (01/22/2018 4:03 AM CDT) Factor X activity 6 (L) 70 - 120 % [facility] DEPARTMENT OF PATHOLOGY AND GENOMIC MEDICINE Specimen Blood Performing Organization Address [facility] [place] [address] PATHOLOGY AND [facility] * VWF antigen (01/22/2018 4:03 AM CDT) VWF Ag 269 (H) 48 - 201 % [facility] DEPARTMENT PATHOLOGY AND [facility] MEDICINE Specimen Blood Performing Organization Address [facility] [place] [address] PATHOLOGY AND [facility] * Troponin (01/22/2018 4:03 AM CDT) Only the most recent of 2 results within the time period is included. Troponin <0.300 0.000 - 0.300 ng/mL [facility] DEPARTMENT OF Comment: PATHOLOGY AND 0.30 - 1.49 GENOMIC MEDICINE ng/mlMay indicate increased risk of acute coronary syndrome. >=1.5 ng/ml Consistent with acute myocardial infarction. The diagnostic value of a single normal or non-diagnostic result is questionable.Serial samples at 2-6 hour intervals are required to rule out acute myocardial injury. Specimen Plasma specimen Performing Organization Address [facility] Phone Number [facility] [place] [address] [place] [address] PATHOLOGY AND GENOMIC MEDICINE * Beta-2 glycoprotein 1 antibody, IgG and IgM (01/22/2018 4:03 AM CDT) Beta-2 glycoprotein 1 <9.4 0.0 - 20.0 [facility] DEPARTMENT OF antibody, IgG Comment: PATHOLOGY AND Negative=<20.0 [facility] GENOMIC MEDICINE Positive >20.0 [facility] Beta-2 glycoprotein 1 18.7 0.0 - 20.0 [facility] DEPARTMENT OF antibody, IgM Comment: PATHOLOGY AND Negative=<20.0 [facility] GENOMIC MEDICINE Positive >20.0 [facility] Specimen Blood Performing Organization Address [facility] Phone Number [address] [place] [address] PATHOLOGY AND GENOMIC MEDICINE * Prepare fresh frozen plasma, 4 Units (01/22/2018 4:03 AM CDT) Only the most recent of 3 results within the time period is included. Product name Thawed Plasma [facility] DEPARTMENT OF PATHOLOGY AND GENOMIC MEDICINE Unit number [id number] [facility] DEPARTMENT OF PATHOLOGY AND GENOMIC MEDICINE Product code [id number] [facility] DEPARTMENT OF PATHOLOGY AND GENOMIC MEDICINE Dispense status Transfused [facility] DEPARTMENT OF PATHOLOGY AND GENOMIC MEDICINE Blood expiration date [facility] DEPARTMENT OF PATHOLOGY AND GENOMIC MEDICINE Blood type code 6200 [facility] DEPARTMENT OF PATHOLOGY AND GENOMIC MEDICINE Blood type A POSITIVE [facility] DEPARTMENT OF PATHOLOGY AND GENOMIC MEDICINE Product name Thawed Plasma [facility] DEPARTMENT OF PATHOLOGY AND GENOMIC MEDICINE Unit number [id number] [facility] DEPARTMENT OF PATHOLOGY AND GENOMIC MEDICINE Product code [id number] [facility] DEPARTMENT OF PATHOLOGY AND GENOMIC MEDICINE Dispense status Transfused [facility] DEPARTMENT OF PATHOLOGY AND GENOMIC MEDICINE Blood expiration date [facility] DEPARTMENT OF PATHOLOGY AND GENOMIC MEDICINE Blood type code 6200 [facility] DEPARTMENT OF PATHOLOGY AND GENOMIC MEDICINE Blood type A POSITIVE [facility] DEPARTMENT OF PATHOLOGY AND GENOMIC MEDICINE Product name Thawed Plasma [facility] DEPARTMENT OF PATHOLOGY AND GENOMIC MEDICINE Unit number [id number] [facility] DEPARTMENT OF PATHOLOGY AND GENOMIC MEDICINE Product code [id number] [facility] DEPARTMENT OF PATHOLOGY AND GENOMIC MEDICINE Dispense status Transfused [facility] DEPARTMENT OF PATHOLOGY AND GENOMIC MEDICINE Blood expiration date [facility] DEPARTMENT OF PATHOLOGY AND GENOMIC MEDICINE Blood type code 6200 [facility] DEPARTMENT OF PATHOLOGY AND GENOMIC MEDICINE Blood type A POSITIVE [facility] DEPARTMENT OF PATHOLOGY AND GENOMIC MEDICINE Specimen Blood Performing Organization Address City/State/Zipcode Phone Number [facility] DEPARTMENT [id number] [place] [address] [place] [address] PATHOLOGY AND GENOMIC MEDICINE * Lupus anticoagulant panel (01/22/2018 4:03 AM CDT) Prothrombin time >90.0 (H) 12.0 - 15.0 sec [facility] DEPARTMENT OF PATHOLOGY AND GENOMIC MEDICINE INR >11.0 (HH) [facility] DEPARTMENT OF Comment: PATHOLOGY AND The International Normalized GENOMIC MEDICINE Ratio (INR) is a therapeutic monitoring tool for patients who are stable on oral anticoagulant therapy. An INR of 2.0-3.0 is suggested for deep vein thrombosis/pulmonary embolism. PTT 180.0 (HH) 23.0 - 36.0 sec [facility] DEPARTMENT OF Comment: PATHOLOGY AND PTT therapeutic range for GENOMIC MEDICINE unfractionated heparin is 61.0-112.0 seconds which corresponds to Anti-Xa 0.3-0.7 U/ml. PT/ INR/ PTT results called to and read back by Trever Soria/[facility]/ COAGULATION(name/location) at01/22/2018 12:17 (date/time) by _DS1. PTT lupus anticoagulant 179.4 (H) 27.0 - 38.0 sec [facility] DEPARTMENT OF Comment: PATHOLOGY AND Lupus anticoagulant (LA) panel [facility] consists of PT, PTT, PTT-LA, and [...] DRVVT 103.9 (H) 29.0 - 46.0 sec [facility] DEPARTMENT OF PATHOLOGY AND GENOMIC MEDICINE Specimen Blood Performing Organization Address City/State/Zipcode Phone Number [facility] DEPARTMENT OF [address] [place] [address] PATHOLOGY AND GENOMIC MEDICINE * HIV 1, 2 antibody (01/22/2018 4:03 AM CDT) HIV 1, 2 antibody Non-Reactive Non-reactive [facility] DEPARTMENT OF Comment: PATHOLOGY AND Starting from November 06 2015, GENOMIC MEDICINE 4th generation HIV screening and confirmation assays are in use at [facility], consistent with the CDC-recommended algorithm. [...] the testing algorithm, please refer to: http://stacks.cdc.gov/view/cdc /26304. Specimen Blood Performing Organization Address City/[facility]/Zipcode Phone Number [facility] DEPARTMENT OF [address] [place] [address] PATHOLOGY AND GENOMIC MEDICINE * Cardiolipin antibodies (01/22/2018 4:03 AM CDT) Cardiolipin IgG 2 0 - 14 GPL [facility] DEPARTMENT OF Comment: PATHOLOGY AND Negative=<15 GENOMIC MEDICINE GPL Indeterminate=15-20 GPL Positive=>20 GPL Cardiolipin IgM 6 0 - 12 MPL [facility] DEPARTMENT OF Comment: PATHOLOGY AND Negative=<13 GENOMIC MEDICINE MPL Indeterminate=13-20 MPL Positive=>20 MPL Specimen Blood Performing Organization Address [facility]/Zipcode Phone Number [facility] DEPARTMENT [address] [place] [address] PATHOLOGY AND GENOMIC MEDICINE * Fibrinogen (01/22/2018 4:03 AM CDT) Fibrinogen 463 (H) 200 - 450 mg/dL [facility] DEPARTMENT OF PATHOLOGY AND GENOMIC MEDICINE Specimen Blood Performing Organization Address [facility] Phone Number [facility] [place] [id number] [place] [address] [place] [address] PATHOLOGY AND GENOMIC MEDICINE * D-dimer (01/22/2018 4:03 AM CDT) D-dimer 0.92 (H) 0.00 - 0.40 ug/mL FEU [facility] DEPARTMENT OF Comment: PATHOLOGY AND Units are ug/ml Fibrinogen [facility] Equivalent Unit. When combined with low [...] and malignancies. Specimen Blood Performing Organization Address [facility]/Zipcode Phone Number [facility] [place] [id number] [place] [address] [place] [address] PATHOLOGY AND GENOMIC MEDICINE * Factor XI assay (01/22/2018 4:03 AM CDT) Factor XI activity 121 60 - 145 % [facility] DEPARTMENT OF PATHOLOGY AND GENOMIC MEDICINE Specimen Blood Performing Organization Address City/[facility]/Zipcode Phone Number [facility] [place] [address] PATHOLOGY AND [facility] * Factor IX assay (01/22/2018 4:03 AM CDT) Factor IX activity 2 (L) 70 - 152 % [facility] DEPARTMENT OF PATHOLOGY AND GENOMIC MEDICINE Specimen Blood Performing Organization Address City/[facility]/Zipcode Phone Number [facility] [place] [address] PATHOLOGY AND [facility] * Factor VIII assay (01/22/2018 4:03 AM CDT) Factor VIII activity 381 (H) 60 - 150 % [facility] DEPARTMENT OF PATHOLOGY AND GENOMIC MEDICINE Specimen Blood Performing Organization Address City/[facility] Phone Number [facility] [place] [address] PATHOLOGY AND GENOMIC MEDICINE * Factor V assay (01/22/2018 4:03 AM CDT) Factor V activity 161 (H) 70 - 145 % [facility] DEPARTMENT OF PATHOLOGY AND GENOMIC MEDICINE Specimen Blood Performing Organization Address City/[facility] Phone Number [facility] [place] [address] PATHOLOGY AND GENOMIC MEDICINE * Type and screen (01/22/2018 4:03 AM CDT) ABO grouping A [facility] DEPARTMENT OF PATHOLOGY AND GENOMIC MEDICINE Rh type POS [facility] DEPARTMENT OF PATHOLOGY AND GENOMIC MEDICINE Antibody screen NEG [facility] DEPARTMENT OF PATHOLOGY AND GENOMIC MEDICINE Performing Organization Address City/[facility]/Zipcode Phone Number [address] [place] [address] PATHOLOGY AND GENOMIC MEDICINE * CADY (01/22/2018 4:03 AM CDT) CADY screen Negative Negative [facility] DEPARTMENT OF PATHOLOGY AND GENOMIC MEDICINE Specimen Blood Performing Organization Address City/[facility]/Zipcode Phone Number [facility] [place] [address] PATHOLOGY AND GENOMIC MEDICINE * Serum electrophoresis (01/22/2018 4:03 AM CDT) Protein 6.9 6.3 - 8.3 g/dL [facility] DEPARTMENT OF Comment: PATHOLOGY AND GENOMIC MEDICINE 4.6-7.0 g/dL 1 week 4.4-7.6 g/dL 7 months-1year 5.1-7.3 g/dL 1-2 years5.6-7 .5 g/dL >3 years6.0-8 .0 g/dL 18-150 6.3-8.3 g/dL SPE albumin 4.47 4.00 - 5.30 g/dL [facility] DEPARTMENT OF PATHOLOGY AND GENOMIC MEDICINE SPE alpha 1 0.20 0.10 - 0.25 g/dL [facility] DEPARTMENT OF PATHOLOGY AND GENOMIC MEDICINE SPE alpha 2 0.67 0.58 - 0.84 g/dL [facility] DEPARTMENT OF PATHOLOGY AND GENOMIC MEDICINE SPE beta 0.80 0.50 - 1.10 g/dL [facility] DEPARTMENT OF PATHOLOGY AND GENOMIC MEDICINE SPE gamma 0.76 0.60 - 1.30 g/dL [facility] DEPARTMENT OF PATHOLOGY AND GENOMIC MEDICINE SPE extended See CommentComment: A normal [facility] DEPARTMENT OF interpretation serum protein study. PATHOLOGY AND GENOMIC MEDICINE SPE interpretation See CommentComment: Haven Vasquez [facility] DEPARTMENT OF MD Olga; Brea Arias, PhD; Santo SANDOVAL AND MD Frederick, PhD GENOMIC MEDICINE Specimen Serum Performing Organization Address City/[facility] Phone Number [facility] [place] [address] PATHOLOGY AND GENOMIC MEDICINE * LDH (01/22/2018 4:03 AM CDT) LDH 531 (H) 87 - 225 U/L [facility] DEPARTMENT OF PATHOLOGY AND GENOMIC MEDICINE Specimen Plasma specimen Performing Organization Address City/[facility] Phone Number [address] [place] [address] PATHOLOGY AND GENOMIC MEDICINE * Haptoglobin (01/22/2018 4:03 AM CDT) Haptoglobin 179 30 - 200 mg/dL [facility] DEPARTMENT OF PATHOLOGY AND GENOMIC MEDICINE Specimen Plasma specimen Performing Organization Address City/[facility] Phone Number [place] [phone] PATHOLOGY AND GENOMIC MEDICINE * CT Abdomen [...] be excluded but is considered less likely. [facility]-[id number] Procedure Note [facility], Radiology Results Incoming - [...] be excluded but is considered less likely. [facility]-[id number] Performing Organization Address City/[facility]/Zipcode Phone Number [facility] [address] [place] [address] * PV Duplex Venous Lower Extremity (01/22/2018 1:05 AM CDT) Narrative Performed At [facility] There is evidence of thrombosis of the distal femoral vein, popliteal vein, and tibial veins with recannalization suggestive of subacute or chronic thrombosis. Performing Organization Address City/[facility] Phone Number [facility] [address] [place] [address] * Urinalysis screen and microscopy, with reflex to culture (01/22/2018 12:22 AM CDT) Specimen site Clean catch [facility] DEPARTMENT OF PATHOLOGY AND GENOMIC MEDICINE Color, UA Yellow [facility] DEPARTMENT OF PATHOLOGY AND GENOMIC MEDICINE Appearance, UA Slightly-Cloudy [facility] DEPARTMENT OF PATHOLOGY AND GENOMIC MEDICINE Specific gravity, UA 1.023 1.001 - 1.035 [facility] DEPARTMENT OF PATHOLOGY AND GENOMIC MEDICINE pH, UA 5.0 5.0 - 8.5 [facility] DEPARTMENT OF PATHOLOGY AND GENOMIC MEDICINE Protein, UA 1+ (A) Negative [facility] DEPARTMENT OF PATHOLOGY AND GENOMIC MEDICINE Glucose, UA Negative Negative [facility] DEPARTMENT OF PATHOLOGY AND GENOMIC MEDICINE Ketones, UA Negative Negative [facility] DEPARTMENT OF PATHOLOGY AND GENOMIC MEDICINE Bilirubin, UA Negative Negative [facility] DEPARTMENT OF PATHOLOGY AND GENOMIC MEDICINE Blood, UA Large (A) Negative [facility] DEPARTMENT OF PATHOLOGY AND GENOMIC MEDICINE Nitrite, UA Negative Negative [facility] DEPARTMENT OF PATHOLOGY AND GENOMIC MEDICINE Urobilinogen, UA Negative <2.0 [facility] DEPARTMENT OF PATHOLOGY AND GENOMIC MEDICINE Leukocyte esterase, UA Negative Negative [facility] DEPARTMENT OF PATHOLOGY AND GENOMIC MEDICINE WBC, UA 0-5 0 - 1 /HPF [facility] DEPARTMENT OF PATHOLOGY AND GENOMIC MEDICINE RBC, UA 61-80 (H) 0 - 5 /HPF [facility] DEPARTMENT OF PATHOLOGY AND GENOMIC MEDICINE Bacteria, UA None seen None seen [facility] DEPARTMENT OF PATHOLOGY AND GENOMIC MEDICINE Yeast, UA None seen [facility] DEPARTMENT OF PATHOLOGY AND GENOMIC MEDICINE Yeast with pseudohyphae, None seen [facility] DEPARTMENT OF PATHOLOGY AND GENOMIC MEDICINE Specimen Urine Performing Organization Address City/[facility]/Zipcode Phone Number [place] [address] [place] [address] PATHOLOGY AND GENOMIC MEDICINE * Miscellaneous referral test (01/22/2018 12:22 AM CDT) [facility] [place] test name ANTICOAGULANT POISING PANEL [facility] [place] test result see note (A) [facility] Comment: Miscellaneous NMS Refrigerated [facility] test code [id number] Test Name: [id number] Anticoagulant Poisoning Panel (Qualitative), [...] Chromatography/ Tandem Mass Spectrometry (LC-MS/MS) sent to [facility] Testing performed at [employer] [address] [place] [id number] CLIA [id number] Narrative Performed At ANTICOAGULANT POISONING PANEL (NMS LAB) [facility] Anticoagulant Poisoning Panel (Qualitative), Serum/Plasma Test (0406SP) [facility] Performing Organization Address [facility] Phone Number [facility] [address] [place] [address] * Urine culture (01/22/2018 12:22 AM CDT) Urine culture SEE COMMENTComment: [facility] DEPARTMENT OF Bacteriuria screen negative. PATHOLOGY AND GENOMIC MEDICINE Specimen Urine Performing Organization Address [facility] Phone Number [address] [place] [address] PATHOLOGY AND GENOMIC MEDICINE * B natriuretic peptide (01/22/2018 12:22 AM CDT) BNP 52 0 - 100 pg/mL [facility] DEPARTMENT OF PATHOLOGY AND GENOMIC MEDICINE Specimen Blood Performing Organization Address [facility] Phone Number [facility] [id number] [place] [address] [place] [address] PATHOLOGY AND GENOMIC MEDICINE * Lipase level (01/22/2018 12:22 AM CDT) Lipase 49 13 - 60 U/L [facility] DEPARTMENT OF PATHOLOGY AND GENOMIC MEDICINE Specimen Plasma specimen Performing Organization Address City/State/Zipcode Phone Number [facility] [place] [address] [place] [address] PATHOLOGY AND GENOMIC MEDICINE after 11/08/2017 Insurance Payer Benefit Subscriber ID Type Phone Address Plan / Group BCBS BCBS OUT xxxxxxxxxxxx PPO OF STATE (Home) [place] [address] Advance Directives Patient has advance care planning documents, and code status on file. For more i nformation, please contact: Norris Wilkerson [address] [place] [address] Date Inactivated Comments Code Status Date Activated 02/03/2018 6:14 PM Full Code 01/22/2018 6:02 AM Code Status decision reached by: Patient
[2018-11-09 16:40] VITALS: BP 118/82
== END | disposition home or self-care (01) ==
LOC: OR 13:10
PROVIDERS: ATTEND Ophthalmology
DX: H25.11 Age-related nuclear cataract, right eye (principal); E03.9 Hypothyroidism, unspecified; I48.91 Unspecified atrial fibrillation; I10 Essential (primary) hypertension; F41.9 Anxiety disorder, unspecified; Z79.82 Long term (current) use of aspirin
CPT/HCPCS: 66984; J2250; V2632